=== PATIENT | female | born 1955 | race Caucasian/White ===

== ENCOUNTER → 2017-10-13 08:02 | Outpatient (CLI) | payer OTHER, SELFPAY ==
[2017-10-13 10:04] LABS: Absolute Lymphocyte Count 1.48 X10^3/ul (0.83-4.51); Absolute Neutrophil Count 3.8 X10^3/uL (2.0-7.7); Basophil# 0.03 X10^3/uL; Basophil% 0.5 % (0-1); Eosinophil# 0.24 X10^3/uL; Hemoglobin 13.1 g/dl (12.0-15.0); Lymphocyte # 1.48 X10^3/ul (4.0); Lymphocyte % 24.4 % (19-41); Mean Corp Hgb Conc 32.8 g/gl (32-36); Mean Corpuscular Hgb 33.3 pg (27.0-32.0); Mean Corpuscular Volume 101.8 fL (81-99); Monocyte# 0.53 X10^3/uL; Monocyte% 8.7 % (0-10); Neutrophil # 3.78 X10^3/uL (2.7-7.7); Neutrophil % 62.2 % (47-70); Platelet Count 281 K/mm3 (150-450); RBC Distribution Width CV 13.3 % (11.6-14.6); RBC Distribution Width SD 48.6 fl (35.1-43.9); Red Blood Count 3.93 M/mm3 (4.2-5.4); White Blood Count 6.1 K/mm3 (4.4-11.0)
[2017-10-13 10:08] LABS: POSITIVE COUNT NO; POSITIVE DIFFERENTIAL NO; POSITIVE MORPHOLOGY NO
[2017-10-13 10:19] LABS: ALB/GLOB Ratio 1.3 RATIO (0.9-2.4); AST(SGOT) 22 U/L (15-37); Alanine Aminotransfer ALT/SGPT 39 U/L (13-56); Albumin, Serum 3.8 g/dL (3.2-5.0); Alkaline Phosphatase 69 U/L (45-117); Anion Gap 6 (5-15); BUN 23 mg/dL (7-18); Calcium,Total 8.7 mg/dL (8.5-10.1); Chloride 105 mmol/L (98-107); Creatinine, Serum 0.68 mg/dL (0.55-1.02); EST Glomerular Filtration Rate 94 mL/min (>60); Est Glom Filt Rate - Afr Amer 114 mL/min (>60); Globulin 2.9 g/dL (2.2-4.2); Glucose 83 mg/dL (70-110); Potassium 3.7 mmol/L (3.5-5.1); Protein, Total 6.7 g/dL (6.4-8.2); Sodium Level 141 mmol/L (136-145)
== END ==
PROVIDERS: Family Provider Family Medicine; PCP Family Medicine; Visit Provider Internal Medicine Rheumatology
DX: M06.4 Inflammatory polyarthropathy (principal); Z79.899 Other long term (current) drug therapy; M79.7 Fibromyalgia; M18.0 Bilateral primary osteoarthritis of first carpometacarpal joints; M72.0 Palmar fascial fibromatosis [Dupuytren]; M47.892 Other spondylosis, cervical region; J30.89 Other allergic rhinitis; I82.5Y9 Chronic embolism and thrombosis of unspecified deep veins of unspecified proximal lower extremity; I47.1 Supraventricular tachycardia
CPT/HCPCS: 36415; 80053; 85025

== ENCOUNTER → 2017-12-29 07:37 | Outpatient (CLI) | payer OTHER, SELFPAY ==
[2017-12-29 09:54] LABS: Absolute Lymphocyte Count 1.49 X10^3/ul (0.83-4.51); Absolute Neutrophil Count 3.5 X10^3/uL (2.0-7.7); Basophil# 0.04 X10^3/uL; Basophil% 0.7 % (0-1); Eosinophils% 3.5 % (0-5); Hematocrit 40.1 % (37-47); Hemoglobin 12.7 g/dl (12.0-15.0); Lymphocyte # 1.49 X10^3/ul (4.0); Lymphocyte % 26.3 % (19-41); Mean Corp Hgb Conc 31.7 g/gl (32-36); Mean Platelet Vol. 10.2 fl (6.2-12.0); Monocyte# 0.47 X10^3/uL; Monocyte% 8.3 % (0-10); Neutrophil # 3.46 X10^3/uL (2.7-7.7); Neutrophil % 61.2 % (47-70); POSITIVE COUNT NO; POSITIVE DIFFERENTIAL NO; POSITIVE MORPHOLOGY NO; Platelet Count 249 K/mm3 (150-450); RBC Distribution Width CV 13.4 % (11.6-14.6); RBC Distribution Width SD 49.3 fl (35.1-43.9); Red Blood Count 3.97 M/mm3 (4.2-5.4); White Blood Count 5.7 K/mm3 (4.4-11.0)
[2017-12-29 10:07] LABS: ALB/GLOB Ratio 1.4 RATIO (0.9-2.4); AST(SGOT) 26 U/L (15-37); Alanine Aminotransfer ALT/SGPT 40 U/L (13-56); Albumin, Serum 3.6 g/dL (3.2-5.0); Alkaline Phosphatase 64 U/L (45-117); Anion Gap 11 (5-15); BUN 28 mg/dL (7-18); BUN/Creat Ratio 36.2 RATIO (10-20); Calcium,Total 8.3 mg/dL (8.5-10.1); Chloride 106 mmol/L (98-107); Creatinine, Serum 0.77 mg/dL (0.55-1.02); EST Glomerular Filtration Rate 81 mL/min (>60); Est Glom Filt Rate - Afr Amer 98 mL/min (>60); Globulin 2.6 g/dL (2.2-4.2); Glucose 112 mg/dL (74-106); Potassium 3.7 mmol/L (3.5-5.1); Protein, Total 6.2 g/dL (6.4-8.2); Sodium Level 143 mmol/L (136-145)
== END ==
PROVIDERS: Family Provider Family Medicine; PCP Family Medicine; Visit Provider Internal Medicine Rheumatology
DX: M06.4 Inflammatory polyarthropathy (principal); Z79.899 Other long term (current) drug therapy; M79.7 Fibromyalgia; M18.0 Bilateral primary osteoarthritis of first carpometacarpal joints; M72.0 Palmar fascial fibromatosis [Dupuytren]; M47.892 Other spondylosis, cervical region; J30.89 Other allergic rhinitis; I82.5Y9 Chronic embolism and thrombosis of unspecified deep veins of unspecified proximal lower extremity; I47.1 Supraventricular tachycardia
CPT/HCPCS: 36415; 80053; 85025

== ENCOUNTER → 2018-03-24 07:30 | Outpatient (CLI) | payer OTHER, SELFPAY ==
[2018-03-24 10:12] LABS: Absolute Lymphocyte Count 1.62 X10^3/ul (0.83-4.51); Absolute Neutrophil Count 3.7 X10^3/uL (2.0-7.7); Basophil# 0.04 X10^3/uL; Basophil% 0.7 % (0-1); Eosinophil# 0.23 X10^3/uL; Eosinophils% 3.8 % (0-5); Hematocrit 38.8 % (37-47); Hemoglobin 12.6 g/dl (12.0-15.0); Lymphocyte # 1.62 X10^3/ul (4.0); Lymphocyte % 26.4 % (19-41); Mean Corp Hgb Conc 32.5 g/gl (32-36); Mean Corpuscular Hgb 32.8 pg (27.0-32.0); Mean Platelet Vol. 10.1 fl (6.2-12.0); Monocyte# 0.51 X10^3/uL; Monocyte% 8.3 % (0-10); Neutrophil # 3.73 X10^3/uL (2.7-7.7); Neutrophil % 60.8 % (47-70); POSITIVE COUNT NO; POSITIVE DIFFERENTIAL NO; POSITIVE MORPHOLOGY NO; Platelet Count 260 K/mm3 (150-450); RBC Distribution Width CV 13.1 % (11.6-14.6); RBC Distribution Width SD 47.3 fl (35.1-43.9); Red Blood Count 3.84 M/mm3 (4.2-5.4); White Blood Count 6.1 K/mm3 (4.4-11.0)
[2018-03-24 10:28] LABS: Cholesterol 163 mg/dL (200); High Density Lipoprotein 84 mg/dL; Triglycerides 36 mg/dL; Very Low Density Lipoprotein 7 mg/dL (5-40)
[2018-03-24 10:35] LABS: ALB/GLOB Ratio 1.2 RATIO (0.9-2.4); AST(SGOT) 32 U/L (15-37); Alanine Aminotransfer ALT/SGPT 48 U/L (13-56); Albumin, Serum 3.6 g/dL (3.2-5.0); Alkaline Phosphatase 65 U/L (45-117); Anion Gap 7 (5-15); BUN 29 mg/dL (7-18); BUN/Creat Ratio 38.3 RATIO (10-20); Calcium,Total 8.5 mg/dL (8.5-10.1); Chloride 107 mmol/L (98-107); Creatinine, Serum 0.76 mg/dL (0.55-1.02); EST Glomerular Filtration Rate 83 mL/min (>60); Est Glom Filt Rate - Afr Amer 100 mL/min (>60); Globulin 2.9 g/dL (2.2-4.2); Glucose 79 mg/dL (74-106); Potassium 3.9 mmol/L (3.5-5.1); Protein, Total 6.5 g/dL (6.4-8.2); Sodium Level 143 mmol/L (136-145)
== END ==
PROVIDERS: Internal Medicine Rheumatology; Family Provider Family Medicine; PCP Family Medicine; Visit Provider Family Medicine
DX: M06.4 Inflammatory polyarthropathy (principal); Z79.899 Other long term (current) drug therapy; M79.7 Fibromyalgia; M18.0 Bilateral primary osteoarthritis of first carpometacarpal joints; M72.0 Palmar fascial fibromatosis [Dupuytren]; M47.892 Other spondylosis, cervical region; J30.89 Other allergic rhinitis; I47.1 Supraventricular tachycardia; I82.5Y9 Chronic embolism and thrombosis of unspecified deep veins of unspecified proximal lower extremity
CPT/HCPCS: 36415; 80053; 80061; 85025

== ENCOUNTER → 2018-06-02 09:19 | Outpatient (CLI) | payer OTHER, SELFPAY ==
--- NOTE | 2018-06-02 09:21 | BI_ITS ---
MAMMOGRAPHY - BILATERAL SCREENING REASON FOR EXAM: Female, 63 years old. Routine annual screening examination. PERTINENT HISTORY: Non-contributory. Remote left excisional breast biopsy. TECHNIQUE: Digital bilateral breast yesenia (3D mammographic acquisition) in the CC and MLO projections. 2-D mediolateral oblique (MLO) and craniocaudad (CC) views of both breasts were obtained. CAD: Full Field Digital Mammography with Computer Added Detection was performed. COMPARISON: Comparison is made with prior study dated May 26, 2017 and May 26, 2016. FINDINGS: Breast Composition: The breasts are heterogeneously dense, which may obscure small masses. There are no dominant masses or suspicious calcifications. No other significant abnormalities are identified. There has been no significant change since the prior study. BI/SCREENING MAMM (CAD), BILAT IMPRESSION: Stable bilateral screening mammogram. Yearly follow-up mammogram recommended. (A) ASSESSMENT CATEGORY: BIRADS Category 1: Negative. A letter regarding these results will be sent to the patient by the facility within 30 days. Approximately 10% of breast cancers are not detected by mammography. A normal mammogram should not delay biopsy of a clinically suspicious abnormality. [id number] Electronically Signed: Charles Dunham MD at 11:21 EDT Tel [phone], Service support ,
--- NOTE | 2018-06-02 09:23 | BD_ITS ---
STUDY: DUAL ENERGY X-RAY ABSORPTIOMETRY / DXA REASON FOR EXAM: Female, 63 years old. The patient is postmenopausal. Loss of height. TECHNIQUE: Bone Mineral Density (BMD) measurements of lumbar spine and bilateral hips were obtained. COMPARISON: None. FINDINGS: Lumbar Spine (L1-L4): g/cm2 (0.899) / T-score (-2.2) / Z-score (-0.9) Findings are suggestive of osteopenia with a moderate fracture risk. Left Femur Total: g/cm2 (0.859) / T-score (-1.2) / Z-score (-0.2) Left Femoral Neck: g/cm2 (0.835) / T-score (-1.5) / Z-score (-0.2) Right Femur Total: g/cm2 (0.847) / T-score (-1.3) / Z-score (-0.3) Right Femoral Neck: g/cm2 (0.819) / T-score (-1.6) / Z-score (-0.3) BD/Dexa Bone Density Study IMPRESSION: The patient is considered osteopenic as outlined below according to World Arron Organization (WHO) criteria with a moderate fracture risk. Reference Information: The T-score is the number of standard deviations above or below the standard which is normal for young adults at their peak bone mineral density. The World Health Organization (WHO) interprets the T-scores as follows: Above -1 Normal bone density Between -1 and -2.5 Osteopenia Equal to / or below -2.5 Osteoporosis As a practical clinical guideline, osteopenia may be graded as follows: Mild -1 through -1.5 Moderate -1.6 through -2.0 Severe -2.1 through -2.4 The Z-score is the number of standard deviations above or below age-matched controls. A Z-score of less than -1.5 would be considered abnormal. References: 1. NIH Osteoporosis and Related Bone Diseases http://www.osteo.org 2. International Society for Clinical Densitometry http://www.iscd.org 3. National Osteoporosis Foundation http://www.nof.org Electronically Signed: Charles Dunham MD at 9:52 EDT Tel [phone], Service support ,
== END ==
PROVIDERS: Family Provider Family Medicine; PCP Family Medicine; Visit Provider Family Medicine
DX: Z12.31 Encounter for screening mammogram for malignant neoplasm of breast (principal); Z78.0 Asymptomatic menopausal state
CPT/HCPCS: 77063; 77067; 77080

== ENCOUNTER → 2018-06-14 07:58 | Outpatient (CLI) | payer OTHER, SELFPAY ==
[2018-06-14 10:13] LABS: Absolute Lymphocyte Count 1.72 X10^3/ul (0.83-4.51); Absolute Neutrophil Count 3.2 X10^3/uL (2.0-7.7); Basophil# 0.05 X10^3/uL; Basophil% 0.9 % (0-1); Eosinophil# 0.14 X10^3/uL; Eosinophils% 2.5 % (0-5); Hematocrit 40.6 % (37-47); Hemoglobin 13.3 g/dl (12.0-15.0); Lymphocyte # 1.72 X10^3/ul (4.0); Lymphocyte % 30.7 % (19-41); Mean Corp Hgb Conc 32.8 g/gl (32-36); Mean Corpuscular Hgb 32.2 pg (27.0-32.0); Mean Corpuscular Volume 98.3 fL (81-99); Mean Platelet Vol. 9.6 fl (6.2-12.0); Monocyte# 0.53 X10^3/uL; Monocyte% 9.4 % (0-10); Neutrophil # 3.16 X10^3/uL (2.7-7.7); Neutrophil % 56.3 % (47-70); Platelet Count 307 K/mm3 (150-450); RBC Distribution Width CV 13.9 % (11.6-14.6); RBC Distribution Width SD 48.4 fl (35.1-43.9); Red Blood Count 4.13 M/mm3 (4.2-5.4); White Blood Count 5.6 K/mm3 (4.4-11.0)
[2018-06-14 10:17] LABS: POSITIVE COUNT NO; POSITIVE DIFFERENTIAL NO; POSITIVE MORPHOLOGY NO
[2018-06-14 10:38] LABS: ALB/GLOB Ratio 1.2 RATIO (0.9-2.4); AST(SGOT) 20 U/L (15-37); Alanine Aminotransfer ALT/SGPT 32 U/L (13-56); Albumin, Serum 3.7 g/dL (3.2-5.0); Alkaline Phosphatase 64 U/L (45-117); Anion Gap 9 (5-15); BUN 25 mg/dL (7-18); BUN/Creat Ratio 33.6 RATIO (10-20); Chloride 105 mmol/L (98-107); Creatinine, Serum 0.74 mg/dL (0.55-1.02); EST Glomerular Filtration Rate 84 mL/min (>60); Est Glom Filt Rate - Afr Amer 102 mL/min (>60); Globulin 3.1 g/dL (2.2-4.2); Glucose 72 mg/dL (74-106); Protein, Total 6.8 g/dL (6.4-8.2); Sodium Level 142 mmol/L (136-145)
== END ==
PROVIDERS: Family Provider Family Medicine; PCP Family Medicine; Referring Provider Internal Medicine Rheumatology; Visit Provider Internal Medicine Rheumatology
DX: M06.4 Inflammatory polyarthropathy (principal); Z79.899 Other long term (current) drug therapy; M79.7 Fibromyalgia; M18.0 Bilateral primary osteoarthritis of first carpometacarpal joints; M72.0 Palmar fascial fibromatosis [Dupuytren]; M47.892 Other spondylosis, cervical region; J30.89 Other allergic rhinitis; I82.5Y9 Chronic embolism and thrombosis of unspecified deep veins of unspecified proximal lower extremity; I47.1 Supraventricular tachycardia
CPT/HCPCS: 36415; 80053; 85025

== ENCOUNTER → 2018-09-20 07:56 | Outpatient (CLI) | payer BC, SELFPAY ==
[2018-09-20 10:28] LABS: Absolute Lymphocyte Count 1.65 X10^3/ul (0.83-4.51); Absolute Neutrophil Count 3.6 X10^3/uL (2.0-7.7); Basophil# 0.03 X10^3/uL; Basophil% 0.5 % (0-1); Eosinophil# 0.17 X10^3/uL; Eosinophils% 2.9 % (0-5); Hematocrit 39.8 % (37-47); Hemoglobin 12.6 g/dl (12.0-15.0); Lymphocyte # 1.65 X10^3/ul (4.0); Lymphocyte % 27.7 % (19-41); Mean Corp Hgb Conc 31.7 g/gl (32-36); Mean Corpuscular Hgb 32.2 pg (27.0-32.0); Mean Corpuscular Volume 101.8 fL (81-99); Mean Platelet Vol. 10.2 fl (6.2-12.0); Monocyte# 0.53 X10^3/uL; Monocyte% 8.9 % (0-10); Neutrophil # 3.57 X10^3/uL (2.7-7.7); Neutrophil % 59.8 % (47-70); Platelet Count 256 K/mm3 (150-450); RBC Distribution Width CV 13.9 % (11.6-14.6); RBC Distribution Width SD 51.2 fl (35.1-43.9); Red Blood Count 3.91 M/mm3 (4.2-5.4)
[2018-09-20 10:33] LABS: POSITIVE COUNT NO; POSITIVE DIFFERENTIAL NO; POSITIVE MORPHOLOGY NO
[2018-09-20 10:38] LABS: ALB/GLOB Ratio 1.3 RATIO (0.9-2.4); AST(SGOT) 23 U/L (15-37); Alanine Aminotransfer ALT/SGPT 36 U/L (13-56); Albumin, Serum 3.7 g/dL (3.2-5.0); Alkaline Phosphatase 61 U/L (45-117); Anion Gap 7 (5-15); BUN 23 mg/dL (7-18); BUN/Creat Ratio 30.2 RATIO (10-20); Calcium,Total 8.8 mg/dL (8.5-10.1); Chloride 109 mmol/L (98-107); Creatinine, Serum 0.76 mg/dL (0.55-1.02); EST Glomerular Filtration Rate 82 mL/min (>60); Est Glom Filt Rate - Afr Amer 99 mL/min (>60); Globulin 2.8 g/dL (2.2-4.2); Glucose 76 mg/dL (74-106); Potassium 3.9 mmol/L (3.5-5.1); Protein, Total 6.5 g/dL (6.4-8.2); Sodium Level 144 mmol/L (136-145)
== END ==
PROVIDERS: Family Provider Family Medicine; PCP Family Medicine; Referring Provider Internal Medicine Rheumatology; Visit Provider Internal Medicine Rheumatology
DX: M06.4 Inflammatory polyarthropathy (principal); Z79.899 Other long term (current) drug therapy; M79.7 Fibromyalgia; M18.0 Bilateral primary osteoarthritis of first carpometacarpal joints; M72.0 Palmar fascial fibromatosis [Dupuytren]; M47.892 Other spondylosis, cervical region
CPT/HCPCS: 36415; 80053; 85025

== ENCOUNTER → 2018-11-02 09:44 | Outpatient (CLI) | payer BC, SELFPAY | PROVIDERS: Family Provider Family Medicine; PCP Family Medicine; Visit Provider Family Medicine | DX: F32.9 Major depressive disorder, single episode, unspecified (principal) | CPT/HCPCS: 36415; 84443 ==

== ENCOUNTER → 2018-12-21 07:45 | Outpatient (CLI) | payer BC, SELFPAY ==
[2018-12-21 10:31] LABS: Absolute Lymphocyte Count 1.43 X10^3/ul (0.83-4.51); Absolute Neutrophil Count 3.3 X10^3/uL (2.0-7.7); Basophil# 0.04 X10^3/uL; Basophil% 0.7 % (0-1); Eosinophil# 0.21 X10^3/uL; Eosinophils% 3.9 % (0-5); Hematocrit 39.3 % (37-47); Hemoglobin 12.7 g/dl (12.0-15.0); Lymphocyte # 1.43 X10^3/ul (4.0); Lymphocyte % 26.4 % (19-41); Mean Corp Hgb Conc 32.3 g/gl (32-36); Mean Corpuscular Hgb 32.6 pg (27.0-32.0); Mean Platelet Vol. 9.8 fl (6.2-12.0); Monocyte# 0.45 X10^3/uL; Monocyte% 8.3 % (0-10); Neutrophil # 3.27 X10^3/uL (2.7-7.7); Neutrophil % 60.5 % (47-70); Platelet Count 249 K/mm3 (150-450); RBC Distribution Width CV 13.4 % (11.6-14.6); RBC Distribution Width SD 48.3 fl (35.1-43.9); Red Blood Count 3.89 M/mm3 (4.2-5.4); White Blood Count 5.4 K/mm3 (4.4-11.0)
[2018-12-21 10:32] LABS: POSITIVE COUNT NO; POSITIVE DIFFERENTIAL NO; POSITIVE MORPHOLOGY NO
[2018-12-21 10:45] LABS: ALB/GLOB Ratio 1.4 RATIO (0.9-2.4); AST(SGOT) 28 U/L (15-37); Alanine Aminotransfer ALT/SGPT 38 U/L (13-56); Albumin, Serum 3.7 g/dL (3.2-5.0); Alkaline Phosphatase 55 U/L (45-117); Anion Gap 9 (5-15); BUN 21 mg/dL (7-18); BUN/Creat Ratio 23.5 RATIO (10-20); Calcium,Total 8.7 mg/dL (8.5-10.1); Chloride 105 mmol/L (98-107); Creatinine, Serum 0.89 mg/dL (0.55-1.02); EST Glomerular Filtration Rate 68 mL/min (>60); Est Glom Filt Rate - Afr Amer 82 mL/min (>60); Globulin 2.6 g/dL (2.2-4.2); Glucose 122 mg/dL (74-106); Potassium 3.9 mmol/L (3.5-5.1); Protein, Total 6.3 g/dL (6.4-8.2); Sodium Level 143 mmol/L (136-145)
== END ==
PROVIDERS: Family Provider Family Medicine; PCP Family Medicine; Referring Provider Internal Medicine Rheumatology; Visit Provider Internal Medicine Rheumatology
DX: M06.4 Inflammatory polyarthropathy (principal); Z79.899 Other long term (current) drug therapy; M79.7 Fibromyalgia; M18.0 Bilateral primary osteoarthritis of first carpometacarpal joints; M72.0 Palmar fascial fibromatosis [Dupuytren]; M47.892 Other spondylosis, cervical region; J30.89 Other allergic rhinitis; I82.5Y9 Chronic embolism and thrombosis of unspecified deep veins of unspecified proximal lower extremity; I47.1 Supraventricular tachycardia
CPT/HCPCS: 36415; 80053; 85025

== ENCOUNTER → 2019-01-23 12:54 | Outpatient (CLI) | payer BC, SELFPAY ==
--- NOTE | 2019-01-23 12:57 | RAD_ITS ---
STUDY: X-RAY - NASAL BONES REASON FOR EXAM: Female, 63 years old. Pain and swelling 2 days after car costello back injury to nasal bones. TECHNIQUE: 3 view(s) of the nasal bones. COMPARISON: None. FINDINGS: Normal nasal bones. Normal anterior nasal spine. There is no demonstrated soft tissue swelling. The remaining visualized osseous structures are normal. There is no demonstrated acute fracture of the otherwise visualized osseous structures. Normal visualized paranasal sinuses. RAD/Nasal Bones min 3 Views IMPRESSION: No acute fracture of the nasal bones. Electronically Signed: Dylan Titus MD at 20:01 EDT , Service support ,
== END ==
PROVIDERS: Family Provider Family Medicine; PCP Family Medicine; Referring Provider Family Medicine; Visit Provider Family Medicine
DX: S09.92XA Unspecified injury of nose, initial encounter (principal)
CPT/HCPCS: 70160

== ENCOUNTER → 2019-03-28 | Outpatient (CLI) | payer BC, SELFPAY ==
[2019-03-28 10:15] LABS: Absolute Lymphocyte Count 1.41 X10^3/uL (0.83-4.51); Absolute Neutrophil Count 3.8 X10^3/uL (2.0-7.7); Basophil# 0.05 X10^3/uL; Basophil% 0.9 % (0-1); Eosinophil# 0.15 X10^3/uL; Eosinophils% 2.6 % (0-5); Hematocrit 37.8 % (37-47); Hemoglobin 12.1 g/dL (12.0-15.0); Lymphocyte # 1.41 X10^3/ul (4.0); Lymphocyte % 24.3 % (19-41); Mean Corpuscular Hgb 31.8 pg (27.0-32.0); Mean Corpuscular Volume 99.2 fL (81-99); Mean Platelet Vol. 9.8 fl (6.2-12.0); Monocyte# 0.41 X10^3/uL; Monocyte% 7.1 % (0-10); Neutrophil # 3.78 X10^3/uL (2.7-7.7); Neutrophil % 64.9 % (47-70); Platelet Count 239 K/mm3 (150-450); RBC Distribution Width CV 13.9 % (11.6-14.6); RBC Distribution Width SD 50.5 fl (35.1-43.9); Red Blood Count 3.81 M/mm3 (4.2-5.4); White Blood Count 5.8 K/mm3 (4.4-11.0)
[2019-03-28 10:27] LABS: ALB/GLOB Ratio 1.3 RATIO (0.9-2.4); AST(SGOT) 28 U/L (15-37); Alanine Aminotransfer ALT/SGPT 33 U/L (13-56); Albumin, Serum 3.7 g/dL (3.2-5.0); Alkaline Phosphatase 57 U/L (45-117); Anion Gap 2 (5-15); BUN 20 mg/dL (7-18); BUN/Creat Ratio 23.3 RATIO (10-20); Calcium,Total 8.6 mg/dL (8.5-10.1); Chloride 107 mmol/L (98-107); Creatinine, Serum 0.86 mg/dL (0.55-1.02); EST Glomerular Filtration Rate 71 mL/min (>60); Est Glom Filt Rate - Afr Amer 86 mL/min (>60); Globulin 2.8 g/dL (2.2-4.2); Glucose 83 mg/dL (74-106); Potassium 3.8 mmol/L (3.5-5.1); Protein, Total 6.5 g/dL (6.4-8.2); Sodium Level 140 mmol/L (136-145)
== END | disposition home or self-care (01) ==
LOC: MTLAB 08:01
PROVIDERS: Family Provider Family Medicine; PCP Family Medicine; Referring Provider Internal Medicine Rheumatology; Visit Provider Internal Medicine Rheumatology
DX: M06.4 Inflammatory polyarthropathy (principal); M79.7 Fibromyalgia; M18.0 Bilateral primary osteoarthritis of first carpometacarpal joints; M15.9 Polyosteoarthritis, unspecified; M65.342 Trigger finger, left ring finger; M72.0 Palmar fascial fibromatosis [Dupuytren]; M47.892 Other spondylosis, cervical region; Z79.899 Other long term (current) drug therapy
CPT/HCPCS: 36415; 80053; 85025

== ENCOUNTER → 2019-06-07 07:10 | Outpatient (CLI) | payer BC, SELFPAY ==
--- NOTE | 2019-06-07 07:13 | BI_ITS ---
MAMMOGRAPHY - BILATERAL SCREENING REASON FOR EXAM: Female, 64 years old. Routine annual screening examination. PERTINENT HISTORY: Non-contributory. Remote left excisional breast biopsy. TECHNIQUE: Digital bilateral breast heather (3D mammographic acquisition) in the CC and MLO projections. 2-D mediolateral oblique (MLO) and craniocaudad (CC) views of both breasts were obtained. CAD: Full Field Digital Mammography with Computer Added Detection was performed. COMPARISON: Comparison is made with prior studies of August 02, 2018 and May 26, 2017. FINDINGS: Breast Composition: The breasts are heterogeneously dense, which may obscure small masses. There are no dominant masses or suspicious calcifications. No other significant abnormalities are identified. There has been no significant change since the prior study. BI/SCREEN MAMM (CAD) W/HEATHER BILAT IMPRESSION: Stable bilateral screening mammogram. Yearly follow-up mammogram recommended. (A) ASSESSMENT CATEGORY: BIRADS Category 1: Negative. A letter regarding these results will be sent to the patient by the facility within 30 days. Approximately 10% of breast cancers are not detected by mammography. A normal mammogram should not delay biopsy of a clinically suspicious abnormality. [id number] Electronically Signed: Charles Dunham, at 8:25 EDT , Service support ,
== END ==
PROVIDERS: Family Provider Family Medicine; PCP Family Medicine; Referring Provider Family Medicine; Visit Provider Family Medicine
DX: Z12.31 Encounter for screening mammogram for malignant neoplasm of breast (principal)
CPT/HCPCS: 77063; 77067

== ENCOUNTER → 2019-06-19 07:48 | Outpatient (CLI) | payer BC, SELFPAY ==
[2019-06-19 10:03] LABS: Absolute Lymphocyte Count 1.39 X10^3/uL (0.83-4.51); Absolute Neutrophil Count 4.6 X10^3/uL (2.0-7.7); Basophil# 0.06 X10^3/uL; Basophil% 0.9 % (0-1); Eosinophil# 0.23 X10^3/uL; Eosinophils% 3.3 % (0-5); Hematocrit 37.9 % (37-47); Hemoglobin 12.2 g/dL (12.0-15.0); Lymphocyte # 1.39 X10^3/ul (4.0); Lymphocyte % 20.2 % (19-41); Mean Corp Hgb Conc 32.2 g/dL (32-36); Mean Corpuscular Hgb 31.9 pg (27.0-32.0); Mean Corpuscular Volume 99.2 fL (81-99); Mean Platelet Vol. 9.4 fl (6.2-12.0); Monocyte# 0.62 X10^3/uL; NRBC Flagged by Analyzer 0 % (0-5); Neutrophil # 4.56 X10^3/uL (2.7-7.7); Neutrophil % 66.5 % (47-70); Platelet Count 289 K/mm3 (150-450); RBC Distribution Width CV 14.3 % (11.6-14.6); RBC Distribution Width SD 51.8 fl (35.1-43.9); Red Blood Count 3.82 M/mm3 (4.2-5.4); White Blood Count 6.9 K/mm3 (4.4-11.0)
[2019-06-19 10:23] LABS: ALB/GLOB Ratio 1.3 RATIO (0.9-2.4); AST(SGOT) 32 U/L (15-37); Alanine Aminotransfer ALT/SGPT 34 U/L (13-56); Albumin, Serum 3.6 g/dL (3.2-5.0); Alkaline Phosphatase 59 U/L (45-117); Anion Gap 7 (5-15); BUN 17 mg/dL (7-18); Calcium,Total 8.6 mg/dL (8.5-10.1); Chloride 108 mmol/L (98-107); Creatinine, Serum 0.81 mg/dL (0.55-1.02); EST Glomerular Filtration Rate 76 mL/min (>60); Est Glom Filt Rate - Afr Amer 92 mL/min (>60); Globulin 2.7 g/dL (2.2-4.2); Glucose 85 mg/dL (74-106); Potassium 3.7 mmol/L (3.5-5.1); Protein, Total 6.3 g/dL (6.4-8.2); Sodium Level 144 mmol/L (136-145)
== END ==
PROVIDERS: Family Provider Family Medicine; PCP Family Medicine; Referring Provider Internal Medicine Rheumatology; Visit Provider Internal Medicine Rheumatology
DX: M06.4 Inflammatory polyarthropathy (principal); Z79.899 Other long term (current) drug therapy; M79.7 Fibromyalgia; M18.0 Bilateral primary osteoarthritis of first carpometacarpal joints; M65.342 Trigger finger, left ring finger; M72.0 Palmar fascial fibromatosis [Dupuytren]; M47.892 Other spondylosis, cervical region
CPT/HCPCS: 36415; 80053; 85025

== ENCOUNTER → 2019-09-21 07:28 | Outpatient (CLI) | payer BC, SELFPAY ==
[2019-09-21 10:02] LABS: Absolute Lymphocyte Count 1.67 X10^3/uL (0.83-4.51); Absolute Neutrophil Count 3.8 X10^3/uL (2.0-7.7); Basophil# 0.08 X10^3/uL; Basophil% 1.2 % (0-1); Eosinophil# 0.22 X10^3/uL; Eosinophils% 3.4 % (0-5); Hematocrit 37.6 % (37-47); Hemoglobin 11.9 g/dL (12.0-15.0); Lymphocyte # 1.67 X10^3/ul (4.0); Mean Corp Hgb Conc 31.6 g/dL (32-36); Mean Corpuscular Hgb 29.8 pg (27.0-32.0); Mean Corpuscular Volume 94.2 fL (81-99); Mean Platelet Vol. 9.4 fl (6.2-12.0); Monocyte# 0.61 X10^3/uL; Monocyte% 9.5 % (0-10); NRBC Flagged by Analyzer 0 % (0-5); Neutrophil # 3.83 X10^3/uL (2.7-7.7); Neutrophil % 59.6 % (47-70); Platelet Count 313 K/mm3 (150-450); RBC Distribution Width CV 15.1 % (11.6-14.6); RBC Distribution Width SD 51.2 fl (35.1-43.9); Red Blood Count 3.99 M/mm3 (4.2-5.4); White Blood Count 6.4 K/mm3 (4.4-11.0)
[2019-09-21 10:14] LABS: ALB/GLOB Ratio 1.2 RATIO (0.9-2.4); AST(SGOT) 30 U/L (15-37); Alanine Aminotransfer ALT/SGPT 43 U/L (13-56); Albumin, Serum 3.7 g/dL (3.2-5.0); Alkaline Phosphatase 51 U/L (45-117); Anion Gap 5 (5-15); BUN 24 mg/dL (7-18); BUN/Creat Ratio 26.8 RATIO (10-20); Chloride 104 mmol/L (98-107); EST Glomerular Filtration Rate 68 mL/min (>60); Est Glom Filt Rate - Afr Amer 82 mL/min (>60); Globulin 3.1 g/dL (2.2-4.2); Glucose 115 mg/dL (74-106); Potassium 3.3 mmol/L (3.5-5.1); Protein, Total 6.8 g/dL (6.4-8.2); Sodium Level 142 mmol/L (136-145)
== END ==
PROVIDERS: Family Provider Family Medicine; PCP Family Medicine; Referring Provider Internal Medicine Rheumatology; Visit Provider Internal Medicine Rheumatology
DX: M06.4 Inflammatory polyarthropathy (principal); Z79.899 Other long term (current) drug therapy; M79.7 Fibromyalgia; M18.0 Bilateral primary osteoarthritis of first carpometacarpal joints; M15.9 Polyosteoarthritis, unspecified; M65.342 Trigger finger, left ring finger; M72.0 Palmar fascial fibromatosis [Dupuytren]; M47.892 Other spondylosis, cervical region; J30.89 Other allergic rhinitis; I82.5Y9 Chronic embolism and thrombosis of unspecified deep veins of unspecified proximal lower extremity; I47.1 Supraventricular tachycardia; L40.9 Psoriasis, unspecified
CPT/HCPCS: 36415; 80053; 85025

== ENCOUNTER → 2019-12-13 08:29 | Outpatient (CLI) | payer BC, SELFPAY ==
[2019-12-13 10:07] LABS: Absolute Lymphocyte Count 1.44 X10^3/uL (0.83-4.51); Absolute Neutrophil Count 4.6 X10^3/uL (2.0-7.7); Basophil# 0.07 X10^3/uL; Eosinophil# 0.16 X10^3/uL; Eosinophils% 2.3 % (0-5); Hematocrit 37.2 % (37-47); Hemoglobin 11.9 g/dL (12.0-15.0); Lymphocyte # 1.44 X10^3/ul (4.0); Lymphocyte % 20.7 % (19-41); Mean Corpuscular Hgb 30.1 pg (27.0-32.0); Mean Corpuscular Volume 93.9 fL (81-99); Mean Platelet Vol. 9.2 fl (6.2-12.0); Monocyte# 0.72 X10^3/uL; Monocyte% 10.3 % (0-10); NRBC Flagged by Analyzer 0 % (0-5); Neutrophil # 4.56 X10^3/uL (2.7-7.7); Neutrophil % 65.6 % (47-70); Platelet Count 288 K/mm3 (150-450); RBC Distribution Width CV 16.7 % (11.6-14.6); RBC Distribution Width SD 55.6 fl (35.1-43.9); Red Blood Count 3.96 M/mm3 (4.2-5.4)
[2019-12-13 10:21] LABS: ALB/GLOB Ratio 1.3 RATIO (0.9-2.4); AST(SGOT) 42 U/L (15-37); Alanine Aminotransfer ALT/SGPT 53 U/L (13-56); Albumin, Serum 3.9 g/dL (3.2-5.0); Alkaline Phosphatase 59 U/L (45-117); Anion Gap 5 (5-15); BUN 21 mg/dL (7-18); BUN/Creat Ratio 23.4 RATIO (10-20); Calcium,Total 8.7 mg/dL (8.5-10.1); Chloride 103 mmol/L (98-107); EST Glomerular Filtration Rate 68 mL/min (>60); Est Glom Filt Rate - Afr Amer 82 mL/min (>60); Globulin 2.9 g/dL (2.2-4.2); Glucose 97 mg/dL (74-106); Potassium 3.1 mmol/L (3.5-5.1); Protein, Total 6.8 g/dL (6.4-8.2); Sodium Level 139 mmol/L (136-145)
== END ==
PROVIDERS: PCP Family Medicine; Referring Provider Internal Medicine Rheumatology; Visit Provider Internal Medicine Rheumatology
DX: M06.4 Inflammatory polyarthropathy (principal); Z79.899 Other long term (current) drug therapy; M79.7 Fibromyalgia; M18.0 Bilateral primary osteoarthritis of first carpometacarpal joints; M65.342 Trigger finger, left ring finger; M72.0 Palmar fascial fibromatosis [Dupuytren]; M47.892 Other spondylosis, cervical region; J30.89 Other allergic rhinitis; I82.5Y9 Chronic embolism and thrombosis of unspecified deep veins of unspecified proximal lower extremity; I47.1 Supraventricular tachycardia
CPT/HCPCS: 36415; 80053; 85025

== ENCOUNTER → 2020-01-31 11:51 | Outpatient (CLI) | payer BC, SELFPAY ==
[2020-01-31 15:32] LABS: Anion Gap 6 (5-15); BUN 15 mg/dL (7-18); BUN/Creat Ratio 18.6 RATIO (10-20); Calcium,Total 9.1 mg/dL (8.5-10.1); Chloride 105 mmol/L (98-107); Creatinine, Serum 0.81 mg/dL (0.55-1.02); EST Glomerular Filtration Rate 76 mL/min (>60); Est Glom Filt Rate - Afr Amer 92 mL/min (>60); Glucose 84 mg/dL (74-106); Potassium 3.6 mmol/L (3.5-5.1); Sodium Level 141 mmol/L (136-145)
[2020-01-31 15:55] LABS: BNP,B-Type NATRIURETIC PEPTIDE 57.8 pg/mL (0-100)
== END ==
PROVIDERS: PCP Family Medicine; Referring Provider Family Medicine; Visit Provider Family Medicine
DX: R60.9 Edema, unspecified (principal)
CPT/HCPCS: 36415; 80048; 83880

== ENCOUNTER → 2020-02-01 13:43 | Outpatient (CLI) | payer BC, SELFPAY ==
--- NOTE | 2020-02-01 13:48 | VDLE_ITS ---
Reason For Study: edema RIGHT LEFT CFV, FV, POP V, T/P Trunk, PTV, Peroneal V, CFV, FV, POP V, T/P Trunk, PTV, and Peroneal and GSV are compressible. V are compressible. Procedure GSV is absent. Exam performed in department. The exam was abbreviated due to the COVID 19 protocol. The exam was diagnostic. A preliminary report was called and/or faxed to Dr. Avalos. Interpretation Summary Deep veins of the lower extremities are bilaterally patent and compressible segmentally. There is no evidence of deep vein thrombosis on either side. The right great saphenous vein appears patent and compressible segmentally. The left great saphenous vein is absent. An abbreviated Covid-19 protocol was performed. Ordering Physician: Moira Avalos Performed By: Jalen Mc RVT
== END ==
PROVIDERS: PCP Family Medicine; Referring Provider Family Medicine; Visit Provider Family Medicine
DX: R60.0 Localized edema (principal)
CPT/HCPCS: 93970

== ENCOUNTER → 2020-02-20 12:49 | Outpatient (CLI) | payer BC, SELFPAY ==
--- NOTE | 2020-02-20 12:55 | ECHOD_ITS ---
Version 2 Reason For Study: SVT Procedure This was a 2D Doppler, Color Flow transthoracic echocardiogram. Exam performed portable in patient room. Left Ventricle Normal LV size. The estimated ejection fraction is 65 %. No regional wall motion abnormalities noted. Right Ventricle Normal RV size. Normal systolic function. Atria Normal left atrium. Normal right atrium. Mitral Valve Bileaflet diffuse mitral valve thickening. Mild (1+) eccentric mitral valve insufficiency. Tricuspid Valve Normal tricuspid valve. Mild tricuspid valve insufficiency. Pulmonary artery systolic pressure is 30 mmHg. Aortic Valve Normal aortic valve. Trisinus/trileaflet aortic valve. Pulmonic Valve Normal pulmonic valve. Great Vessels Normal aortic root. The pulmonary artery is normal size. Normal inferior vena cava. Pericardium/Pleural No pericardial effusion. MMode/2D Measurements & Calculations LVIDd: 4.9 cm IVSd: 0.86 cm Ao root diam: 3.5 cm LVIDs: 3.1 cm LVPWd: 0.78 cm LA dimension: 4.0 cm RVDd: 3.4 cm FS: 36.7 % LAV(MOD-bp): 63.2 ml LA A4 area: 20.5 cm2 RA A4 area: 18.1 cm2 LAV(MOD-bp) Indexed: 35.9 ml/m2 LAV(MOD-sp2): 60.7 ml LAV(MOD-sp4): 61.4 ml Time Measurements MV dec time: 0.17 sec Doppler Measurements & Calculations MV E max luis alfredo: 88.3 cm/sec Lat Peak E' Luis Alfredo: 12.7 cm/sec Med Peak E' Luis Alfredo: 9.0 cm/sec MV A max luis alfredo: 104.6 cm/sec E/E' lat: 6.9 E/E' med: 9.8 MV E/A: 0.84 MV V2 max: 114.0 cm/sec MV P1/2t max luis alfredo: 101.2 cm/sec Ao V2 max: 170.1 cm/sec MV max P.2 mmHg MV P1/2t: 93.2 msec Ao max P.6 mmHg MV V2 mean: 66.3 cm/sec MV dec slope: 317.8 cm/sec2 MV mean P.0 mmHg MVA(P1/2t): 2.4 cm2 MV V2 VTI: 32.2 cm LV V1 max: 143.8 cm/sec MR max luis alfredo: 571.7 cm/sec PA V2 max: 108.8 cm/sec LV V1 max P.3 mmHg MR max P.7 mmHg MR mean luis alfredo: 464.5 cm/sec MR mean P.5 mmHg MR VTI: 198.5 cm TR max luis alfredo: 258.2 cm/sec TR max P.7 mmHg Interpretation Summary Normal LV size. The estimated ejection fraction is 65 %. Bileaflet diffuse mitral valve thickening. Mild (1+) eccentric mitral valve insufficiency. Mild tricuspid valve insufficiency. Pulmonary artery systolic pressure is 30 mmHg. Ordering Physician: Moira Avalos Referring Physician: Moira Avalos Performed By: Morales Vital RCS
== END ==
PROVIDERS: PCP Family Medicine; Referring Provider Family Medicine; Visit Provider Family Medicine
DX: I47.1 Supraventricular tachycardia (principal)
CPT/HCPCS: 93306

== ENCOUNTER → 2020-03-06 07:22 | Outpatient (CLI) | payer BC, SELFPAY ==
[2020-03-06 10:29] LABS: Absolute Lymphocyte Count 1.36 X10^3/uL (0.83-4.51); Absolute Neutrophil Count 3.8 X10^3/uL (2.0-7.7); Basophil# 0.06 X10^3/uL; Eosinophil# 0.11 X10^3/uL; Eosinophils% 1.9 % (0-5); Hematocrit 36.6 % (37-47); Lymphocyte # 1.36 X10^3/ul (4.0); Mean Corp Hgb Conc 30.1 g/dL (32-36); Mean Corpuscular Hgb 28.1 pg (27.0-32.0); Mean Corpuscular Volume 93.6 fL (81-99); Mean Platelet Vol. 9.2 fl (6.2-12.0); Monocyte# 0.62 X10^3/uL; Monocyte% 10.5 % (0-10); NRBC Flagged by Analyzer 0 % (0-5); Neutrophil # 3.75 X10^3/uL (2.7-7.7); Neutrophil % 63.4 % (47-70); Platelet Count 308 K/mm3 (150-450); RBC Distribution Width CV 17.8 % (11.6-14.6); RBC Distribution Width SD 60.2 fl (35.1-43.9); Red Blood Count 3.91 M/mm3 (4.2-5.4); White Blood Count 5.9 K/mm3 (4.4-11.0)
[2020-03-06 10:50] LABS: ALB/GLOB Ratio 1.3 RATIO (0.9-2.4); AST(SGOT) 31 U/L (15-37); Alanine Aminotransfer ALT/SGPT 28 U/L (13-56); Albumin, Serum 3.9 g/dL (3.2-5.0); Alkaline Phosphatase 70 U/L (45-117); Anion Gap 3 (5-15); BUN 14 mg/dL (7-18); BUN/Creat Ratio 17.2 RATIO (10-20); Calcium,Total 8.9 mg/dL (8.5-10.1); Chloride 108 mmol/L (98-107); Creatinine, Serum 0.82 mg/dL (0.55-1.02); EST Glomerular Filtration Rate 75 mL/min (>60); Est Glom Filt Rate - Afr Amer 91 mL/min (>60); Globulin 2.9 g/dL (2.2-4.2); Glucose 90 mg/dL (74-106); Potassium 3.5 mmol/L (3.5-5.1); Protein, Total 6.8 g/dL (6.4-8.2); Sodium Level 143 mmol/L (136-145)
== END ==
PROVIDERS: PCP Family Medicine; Referring Provider Internal Medicine Rheumatology; Visit Provider Internal Medicine Rheumatology
DX: M06.4 Inflammatory polyarthropathy (principal); Z79.899 Other long term (current) drug therapy; M79.7 Fibromyalgia; M18.0 Bilateral primary osteoarthritis of first carpometacarpal joints; M65.342 Trigger finger, left ring finger
CPT/HCPCS: 36415; 80053; 85025

== ENCOUNTER → 2020-03-27 09:15 | Outpatient (CLI) | payer BC, SELFPAY | PROVIDERS: PCP Family Medicine; Referring Provider Internal Medicine Pulmonary Disease; Visit Provider Internal Medicine Pulmonary Disease | DX: Z03.818 Encounter for observation for suspected exposure to other biological agents ruled out (principal) | CPT/HCPCS: 87635; G2023; U0003 ==

== ENCOUNTER → 2020-05-21 11:30 | Outpatient (CLI) | payer BC, SELFPAY ==
[2020-05-21 16:09] LABS: Absolute Lymphocyte Count 1.97 X10^3/uL (0.83-4.51); Absolute Neutrophil Count 4.3 X10^3/uL (2.0-7.7); Basophil# 0.06 X10^3/uL; Basophil% 0.8 % (0-1); Eosinophil# 0.14 X10^3/uL; Hematocrit 35.6 % (37-47); Hemoglobin 10.9 g/dL (12.0-15.0); Lymphocyte # 1.97 X10^3/ul (4.0); Lymphocyte % 27.7 % (19-41); Mean Corp Hgb Conc 30.6 g/dL (32-36); Mean Corpuscular Hgb 27.3 pg (27.0-32.0); Mean Corpuscular Volume 89.2 fL (81-99); Mean Platelet Vol. 9.8 fl (6.2-12.0); Monocyte# 0.65 X10^3/uL; Monocyte% 9.1 % (0-10); NRBC Flagged by Analyzer 0 % (0-5); Neutrophil # 4.29 X10^3/uL (2.7-7.7); Neutrophil % 60.3 % (47-70); Platelet Count 349 K/mm3 (150-450); RBC Distribution Width SD 58.2 fl (35.1-43.9); Red Blood Count 3.99 M/mm3 (4.2-5.4); White Blood Count 7.1 K/mm3 (4.4-11.0)
[2020-05-21 16:13] LABS: ALB/GLOB Ratio 1.2 RATIO (0.9-2.4); AST(SGOT) 34 U/L (15-37); Alanine Aminotransfer ALT/SGPT 29 U/L (13-56); Albumin, Serum 3.8 g/dL (3.2-5.0); Alkaline Phosphatase 69 U/L (45-117); Anion Gap 5 (5-15); BUN 14 mg/dL (7-18); BUN/Creat Ratio 18.5 RATIO (10-20); Calcium,Total 8.7 mg/dL (8.5-10.1); Chloride 105 mmol/L (98-107); Creatinine, Serum 0.76 mg/dL (0.55-1.02); EST Glomerular Filtration Rate 82 mL/min (>60); Est Glom Filt Rate - Afr Amer 99 mL/min (>60); Globulin 3.1 g/dL (2.2-4.2); Glucose 81 mg/dL (74-106); Potassium 3.6 mmol/L (3.5-5.1); Protein, Total 6.9 g/dL (6.4-8.2); Sodium Level 141 mmol/L (136-145)
== END ==
PROVIDERS: PCP Family Medicine; Referring Provider Internal Medicine Rheumatology; Visit Provider Internal Medicine Rheumatology
DX: M06.4 Inflammatory polyarthropathy (principal); Z79.899 Other long term (current) drug therapy; M79.7 Fibromyalgia; M18.0 Bilateral primary osteoarthritis of first carpometacarpal joints; M65.342 Trigger finger, left ring finger; M72.0 Palmar fascial fibromatosis [Dupuytren]
CPT/HCPCS: 36415; 80053; 85025

== ENCOUNTER → 2020-06-27 06:55 | Outpatient (CLI) | payer BC, SELFPAY ==
--- NOTE | 2020-06-27 06:59 | BI_ITS ---
MAMMOGRAPHY - BILATERAL SCREENING REASON FOR EXAM: Female, 65 years old. Routine annual screening examination. PERTINENT HISTORY: Non-contributory. Remote left excisional breast biopsy. TECHNIQUE: Digital bilateral breast heather (3D mammographic acquisition) in the CC and MLO projections. 2-D mediolateral oblique (MLO) and craniocaudad (CC) views of both breasts were obtained. CAD: Full Field Digital Mammography with Computer Added Detection was performed. COMPARISON: Comparison is made with prior study dated 06/07/2019 and 06/02/2018. FINDINGS: Breast Composition: The breasts are heterogeneously dense, which may obscure small masses. There are no dominant masses or suspicious calcifications. No other significant abnormalities are identified. There has been no significant change since the prior study. BI/SCREEN MAMM (CAD) W/HEATHER BILAT IMPRESSION: Stable bilateral screening mammogram. Yearly follow-up mammogram recommended. (A) ASSESSMENT CATEGORY: BIRADS Category 1: Negative. A letter regarding these results will be sent to the patient by the facility within 30 days. Approximately 10% of breast cancers are not detected by mammography. A normal mammogram should not delay biopsy of a clinically suspicious abnormality. [id number] Electronically Signed: Charles Dunham, at 8:38 EDT , Service support ,
== END ==
PROVIDERS: PCP Family Medicine; Referring Provider Family Medicine; Visit Provider Family Medicine
DX: Z12.31 Encounter for screening mammogram for malignant neoplasm of breast (principal)
CPT/HCPCS: 77063; 77067

== ENCOUNTER → 2020-08-15 09:48 | Outpatient (CLI) | payer BC, SELFPAY ==
[2020-08-15 12:19] LABS: Absolute Lymphocyte Count 2.96 X10^3/uL (0.83-4.51); Absolute Neutrophil Count 6.8 X10^3/uL (2.0-7.7); Basophil# 0.06 X10^3/uL; Basophil% 0.5 % (0-1); Eosinophil# 0.11 X10^3/uL; Hematocrit 37.5 % (37-47); Hemoglobin 11.2 g/dL (12.0-15.0); Lymphocyte # 2.96 X10^3/ul (4.0); Mean Corp Hgb Conc 29.9 g/dL (32-36); Mean Corpuscular Hgb 27.1 pg (27.0-32.0); Mean Corpuscular Volume 90.6 fL (81-99); Mean Platelet Vol. 9.7 fl (6.2-12.0); Monocyte# 1.35 X10^3/uL; Monocyte% 11.9 % (0-10); NRBC Flagged by Analyzer 0 % (0-5); Neutrophil # 6.83 X10^3/uL (2.7-7.7); Neutrophil % 60.1 % (47-70); Platelet Count 367 K/mm3 (150-450); RBC Distribution Width CV 18.6 % (11.6-14.6); RBC Distribution Width SD 59.7 fl (35.1-43.9); Red Blood Count 4.14 M/mm3 (4.2-5.4); White Blood Count 11.4 K/mm3 (4.4-11.0)
[2020-08-15 12:43] LABS: ALB/GLOB Ratio 1.3 RATIO (0.9-2.4); AST(SGOT) 23 U/L (15-37); Alanine Aminotransfer ALT/SGPT 37 U/L (13-56); Albumin, Serum 3.9 g/dL (3.2-5.0); Alkaline Phosphatase 77 U/L (45-117); Anion Gap 5 (5-15); BUN 14 mg/dL (7-18); BUN/Creat Ratio 17.3 RATIO (10-20); Calcium,Total 9.1 mg/dL (8.5-10.1); Chloride 103 mmol/L (98-107); Creatinine, Serum 0.81 mg/dL (0.55-1.02); EST Glomerular Filtration Rate 76 mL/min (>60); Est Glom Filt Rate - Afr Amer 92 mL/min (>60); Globulin 3.1 g/dL (2.2-4.2); Glucose 84 mg/dL (74-106); Potassium 3.7 mmol/L (3.5-5.1); Sodium Level 139 mmol/L (136-145)
== END ==
PROVIDERS: PCP Family Medicine; Referring Provider Internal Medicine Rheumatology; Visit Provider Internal Medicine Rheumatology
DX: M06.4 Inflammatory polyarthropathy (principal); Z79.899 Other long term (current) drug therapy; M79.7 Fibromyalgia; M18.0 Bilateral primary osteoarthritis of first carpometacarpal joints; M65.342 Trigger finger, left ring finger; M72.0 Palmar fascial fibromatosis [Dupuytren]; M47.892 Other spondylosis, cervical region; J30.89 Other allergic rhinitis; I47.1 Supraventricular tachycardia; I82.5Y9 Chronic embolism and thrombosis of unspecified deep veins of unspecified proximal lower extremity
CPT/HCPCS: 36415; 80053; 85025

== ENCOUNTER → 2020-08-30 09:42 | Outpatient (CLI) | payer BC, SELFPAY ==
[2020-08-30 12:34] LABS: Thyroid Stim Hormone (TSH) 1.56 uIU/mL (0.358-3.74)
== END ==
PROVIDERS: PCP Family Medicine; Referring Provider Family Medicine; Visit Provider Family Medicine
DX: R63.5 Abnormal weight gain (principal)
CPT/HCPCS: 36415; 84443

== ENCOUNTER 2020-09-17 17:26 | Emergency (ER) | payer BC, SELFPAY ==
[2020-09-17 17:27] VITALS: BP 161/79; PULSE 83; RESP 16; TEMP 36.4; O2SAT 99; BMI 33.6
--- NOTE | 2020-09-17 17:34 | EKG12_ITS ---
Test Reason : PALPITATIONS Blood Pressure : / mmHG Vent. Rate : 072 BPM Atrial Rate : 072 BPM P-R Int : 132 ms QRS Dur : 076 ms QT Int : 406 ms P-R-T Axes : 032 031 033 degrees QTc Int : 444 ms Normal sinus rhythm Normal ECG Confirmed by MARIELA ROBLES, ANI ([id number]), editor map MARYLIN CHEW ([id number]) on 09/20/2020 8:39:07 AM Referred By: NGHIA Confirmed By:ANI SIERRA MD
--- NOTE | 2020-09-17 18:03 | ED.VISSUMM ---
- ER Visit Summary Date of Service: 09/17/20 Chief Complaint: Hypertension, neck pain, palpitations History of Present Illness: The patient is a 65 F who presents with elevated blood pressures, neck pain, and palpitations that have been gradually gotten worse over the past 1 to 2 days. Patient states she feels some throbbing in her neck. Patient went to her primary care physician's office today who referred her to the emergency department for further evaluation of the pulsations in her neck. Patient describes the pain is dull and throbbing. Patient also admits to mild headache. Patient does admit to some shortness of breath. Patient states this is worse with exertion. Physical Examination: Vital signs are stable. Patient is afebrile. Patient is in no acute distress. Oral mucosa is pink and moist. Neck is supple. Trachea is midline. There is no JVD. There is a palpable pulse in the carotids bilaterally. There is no thrill. There are no carotid bruits auscultated. There are pulsations noted on the right side of her neck. Heart was regular rate and rhythm. Lungs are clear and equal bilaterally. Abdomen is soft. Bowel sounds are normal. There is no tenderness. Cranial nerves II through XII are intact. There are no focal motor or sensory deficits. Test Results: EKG was ordered. On my interpretation, there is a normal sinus rhythm with a rate of 72. There are no acute ST or T wave changes. CTA of the chest was obtained. There is no evidence of PE or aortic dissection. CTA of the neck was obtained. There is no aneurysm or dissection. There is minimal plaque formation noted in the bilateral carotid arteries. These were interpreted by the radiologist and reviewed by myself. CBC shows a mild anemia with a hemoglobin of 10.7 and pericardia 34.4. Comprehensive metabolic profile was within normal limits. PT with INR and PTT were within normal limits. Troponin was normal. Emergency Department Course and Treatment: Patient was feeling better on reevaluation. Patient wants to go home. Patient was instructed to follow-up with her primary care physician in 5 to 7 days. Patient understood and was agreeable with the plan. All questions were answered. Disposition: Discharge home Impression: 1. Dyspnea This note was generated with [id number] software. It may contain incorrect words, spelling, and punctuation that were not noted in review of the chart prior to signing ED Disposition - Plan for ED Patient: Disposition: Home or Assisted Living Diagnosis: Dyspnea Instructions: ED Dyspnea Referrals: Moira Avalos MD [Primary Care Provider] - 3-5 Days
--- NOTE | 2020-09-17 18:09 | CT_ITS ---
STUDY: CTA CHEST REASON FOR EXAM: Female, 65 years old. Dyspnea on exertion. Calcifications. Pulsation and neck with neck pain for 2 days. RADIATION DOSAGE (If Supplied By Facility): CTDIvol = ( 18.84 ) mGy, DLP = ( 1637.37 ) mGycm TECHNIQUE: The examination was performed with the intravenous administration of IV 100mL Isovue-370. Post-processing of the angiographic images was performed, with multiplanar reformation and 3D reconstruction. Individualized dose optimization techniques were used for this CT. COMPARISON: None. FINDINGS: Normal enhancement of the main pulmonary artery and right and left pulmonary arteries. Normal enhancement of the bilateral peripheral pulmonary arteries. There is no demonstrated pulmonary embolism. Mild tortuosity of thoracic aorta without aneurysm. There is no demonstrated aortic dissection. Normal heart and pericardium. Normal mediastinum. Normal hilar regions. Normal visualized trachea and bronchi. The lungs are well expanded. Normal pulmonary parenchyma. Normal pleura. Normal chest wall structures. Minimal degenerative changes of the thoracic spine and exaggerated kyphosis. There is a small hiatal hernia. There is a cyst in segment 4A of the liver. CT/CTA Chest W/WO Contrast IMPRESSION: 1. Normal CTA chest examination, without a demonstrated pulmonary embolism or arterial dissection. 2. Degenerative changes of the thoracic spine. 3. Small hiatal hernia. Electronically Signed: Rick Pickens DO at 19:39 EST Tel [phone], Service support ,
[2020-09-17 18:23] LABS: Absolute Lymphocyte Count 2.23 X10^3/uL (0.83-4.51); Absolute Neutrophil Count 4.9 X10^3/uL (2.0-7.7); Basophil# 0.07 X10^3/uL; Basophil% 0.9 % (0-1); Eosinophil# 0.09 X10^3/uL; Eosinophils% 1.1 % (0-5); Hematocrit 34.4 % (37-47); Hemoglobin 10.7 g/dL (12.0-15.0); Lymphocyte # 2.23 X10^3/ul (4.0); Lymphocyte % 27.3 % (19-41); Mean Corp Hgb Conc 31.1 g/dL (32-36); Mean Corpuscular Hgb 26.7 pg (27.0-32.0); Mean Corpuscular Volume 85.8 fL (81-99); Mean Platelet Vol. 8.9 fl (6.2-12.0); Monocyte# 0.83 X10^3/uL; Monocyte% 10.2 % (0-10); NRBC Flagged by Analyzer 0 % (0-5); Neutrophil # 4.93 X10^3/uL (2.7-7.7); Neutrophil % 60.3 % (47-70); Platelet Count 373 K/mm3 (150-450); RBC Distribution Width CV 18.9 % (11.6-14.6); RBC Distribution Width SD 58.4 fl (35.1-43.9); Red Blood Count 4.01 M/mm3 (4.2-5.4); White Blood Count 8.2 K/mm3 (4.4-11.0)
[2020-09-17 18:33] VITALS: BP 133/76; PULSE 73; RESP 16; O2SAT 98
[2020-09-17 18:51] LABS: ALB/GLOB Ratio 1.3 RATIO (0.9-2.4); AST(SGOT) 35 U/L (15-37); Alanine Aminotransfer ALT/SGPT 42 U/L (13-56); Alkaline Phosphatase 77 U/L (45-117); Anion Gap 8 (5-15); BUN 17 mg/dL (7-18); BUN/Creat Ratio 17.1 RATIO (10-20); Calcium,Total 9.2 mg/dL (8.5-10.1); Chloride 103 mmol/L (98-107); Creatinine, Serum 0.99 mg/dL (0.55-1.02); EST Glomerular Filtration Rate 60 mL/min (>60); Est Glom Filt Rate - Afr Amer 73 mL/min (>60); Estimated Creatinine Clearance 48.11 ml/min; Globulin 3.1 g/dL (2.2-4.2); Glucose 95 mg/dL (74-106); International Normalized Ratio 1.4; Potassium 3.8 mmol/L (3.5-5.1); Protein, Total 7.1 g/dL (6.4-8.2); Prothrombin Time (Protime)PT. 16.5 SECONDS (11.7-14.9); Sodium Level 138 mmol/L (136-145)
[2020-09-17 18:52] LABS: Partial Thromboplast Time 33.7 Seconds (24.1-36.2)
[2020-09-17 18:55] LABS: Lactic Acid 0.9 mmol/L (0.4-1.9)
--- NOTE | 2020-09-17 18:55 | CT_ITS ---
STUDY: CTA NECK WITH CONTRAST REASON FOR EXAM: Female, 65 years old. Dyspnea on exertion. Chest palpitations. Pulsation of the neck with neck pain for 2 days. RADIATION DOSAGE (If Supplied By Facility): CTDIvol = ( 18.84 ) mGy, DLP = ( 1637.37 ) mGycm TECHNIQUE: CT angiography with multi-detector data acquisition was performed from the aortic arch to the skull base following intravenous administration of IV 100mL Isovue-370. MIP images were reconstructed from the axial data set. Post-processing of the angiographic images was performed, with multiplanar reformation and 3D reconstruction. Individualized dose optimization techniques were used for this CT. COMPARISON: CTA of the chest, 09/17/2020. FINDINGS: AORTIC ARCH: Normal visualized aortic arch. Normal origins of the brachiocephalic, left common carotid, and left subclavian arteries. RIGHT CAROTID ARTERIES: Normal right common carotid artery (CCA). There is minimal atherosclerotic changes at the carotid bifurcation without stenosis. Normal carotid bulb. Normal origin of the right internal carotid (ICA) artery without a hemodynamically significant stenosis. Normal visualized cervical portion of the right internal carotid artery. Normal origin of the right external carotid artery (ECA). LEFT CAROTID ARTERIES: Tortuosity of the proximal left common carotid artery (CCA). The calcifications at the carotid bifurcation without significant stenosis. Normal carotid bulb. Normal origin of the left internal carotid (ICA) artery without a hemodynamically significant stenosis. Tortuosity of the visualized cervical portion of the left internal carotid artery. Normal origin of the left external carotid artery (ECA). VERTEBRAL ARTERIES: Normal bilateral vertebral arteries. There are degenerative changes of the cervical spine. Lung apices are clear. Normal thyroid. CT/CTA Neck W/WO Contrast IMPRESSION: 1. Bilateral hemodynamically insignificant carotid plaque by NASCET criteria. 2. Mild tortuosity of the proximal left common carotid artery and left internal carotid artery. 3. Normal vertebral arteries. Electronically Signed: Rick Pickens DO at 19:42 EST Tel [phone], Service support ,
[2020-09-17 19:17] VITALS: BP 122/64; PULSE 83; RESP 16; O2SAT 98
[2020-09-17 20:34] VITALS: BP 136/84; PULSE 82; RESP 16; O2SAT 99
[2020-09-17 21:32] VITALS: BP 125/58; PULSE 76; RESP 16; O2SAT 96
[2020-09-17 22:05] VITALS: BP 138/66; PULSE 69; RESP 12; O2SAT 96
== END 2020-09-17 22:06 | disposition home or self-care (01) ==
PROVIDERS: Emergency Provider Emergency Medicine; PCP Family Medicine
DX: R06.00 Dyspnea, unspecified (principal); I10 Essential (primary) hypertension; R51.9 Headache, unspecified; M54.2 Cervicalgia; R00.2 Palpitations; I73.00 Raynaud's syndrome without gangrene
CPT/HCPCS: 70498; 71275; 80053; 83605; 84484; 85025; 85610; 85730; 93005; 99285; Q9967; A4216

== ENCOUNTER → 2020-10-31 06:58 | Outpatient (CLI) | payer BC, SELFPAY ==
[2020-10-17 11:42] VITALS: BMI 31.1
--- NOTE | 2020-10-31 09:17 | STRESSREP ---
Stress Test Report Date: 10-31-2020 Procedure: Exercise tolerance test/imaging study Indications: Shortness of breath/dyspnea on exertion Consent: Per the patient Procedure: The patient exercised on a Gonzalez protocol for 6 minutes and 30 seconds completing Stage II and 30 seconds of Stage III achieving a peak heart rate of 137 bpm (87% predicted maximal heart rate) with a peak blood pressure 140/48 mmHg and a peak MET capacity of 7 METs. The baseline ECG demonstrated sinus rhythm. The peak exercise ECG demonstrated no obvious ECG changes. There were no cardiac dysrhythmias pretest, during exercise, or recovery. The functional capacity was considered average. There was no complaint of chest discomfort during exercise or recovery. The examination was discontinued secondary to dyspnea. Impression: 1. Technically adequate (percent predicted maximal heart rate greater than 85%) exercise tolerance test 2. Peak exercise ECG no obvious ECG changes 3. There were no cardiac dysrhythmias pretest, during exercise, or recovery 4. Nuclear images pending Myocardial perfusion imaging study: Technique: The patient was injected with 11.7 mCi of technetium 99m Cardiolite and subsequently rest SPECT Cardiolite nuclear imaging was obtained in the horizontal long, vertical long, and short axis views. The patient exercised on a Gonzalez protocol for 6 minutes and 30 seconds completing Stage II and 30 seconds of Stage III achieving a peak heart rate of 137 bpm (87% predicted maximal heart rate) with a peak blood pressure 140/48 mmHg and a peak MET capacity of 7 METs. The patient was injected with 35.0 mCi of technetium 99m Cardiolite and subsequently stress SPECT Cardiolite nuclear imaging was obtained in the horizontal long, vertical long, and short axis views. A gated Cardiolite study at peak stress was obtained. Interpretation: Rest and stress SPECT Cardiolite nuclear imaging status post realignment, normalization, and attenuation correction, demonstrates at rest the appearance of an area of diminished tracer uptake near the basal towards mid interventricular septal area which status post arrest appears to improve/normalize. There is end systolic thickening and brightening. The gated Cardiolite study demonstrates myocardial thickening and inward wall motion. The reported LVEF is 75%. Impression: 1. Rest and stress SPECT Cardiolite nuclear imaging demonstrate Shan perfusion changes at rest which appear to improve/normalize following stress appearing compatible shifting soft tissue attenuation/artifact with no myocardial perfusion changes considered diagnostic for associated stress-induced myocardial ischemia. 2. The gated Cardiolite study reports an LVEF of 75%. This note was generated with [employer]ation software. It may contain incorrect words, spelling, and punctuation that were not noted in checking the note before signing.
== END ==
PROVIDERS: PCP Family Medicine; Referring Provider Internal Medicine Cardiovascular Disease; Visit Provider Internal Medicine Cardiovascular Disease
DX: R06.00 Dyspnea, unspecified (principal); I47.1 Supraventricular tachycardia; I10 Essential (primary) hypertension; J45.909 Unspecified asthma, uncomplicated; I87.1 Compression of vein
CPT/HCPCS: 78452; 93017; A9500; A4216

== ENCOUNTER → 2020-11-06 07:18 | Outpatient (CLI) | payer BC, SELFPAY ==
[2020-10-17 11:42] VITALS: BMI 31.1
[2020-11-06 10:32] LABS: Absolute Lymphocyte Count 1.61 X10^3/uL (0.83-4.51); Basophil# 0.06 X10^3/uL; Basophil% 0.9 % (0-1); Eosinophil# 0.15 X10^3/uL; Eosinophils% 2.3 % (0-5); Hematocrit 35.2 % (37-47); Hemoglobin 10.8 g/dL (12.0-15.0); Lymphocyte # 1.61 X10^3/ul (4.0); Mean Corp Hgb Conc 30.7 g/dL (32-36); Mean Corpuscular Hgb 26.5 pg (27.0-32.0); Mean Corpuscular Volume 86.5 fL (81-99); Mean Platelet Vol. 9.4 fl (6.2-12.0); Monocyte# 0.57 X10^3/uL; Monocyte% 8.9 % (0-10); NRBC Flagged by Analyzer 0 % (0-5); Neutrophil # 4.02 X10^3/uL (2.7-7.7); Neutrophil % 62.6 % (47-70); Platelet Count 399 K/mm3 (150-450); RBC Distribution Width CV 18.9 % (11.6-14.6); RBC Distribution Width SD 59.7 fl (35.1-43.9); Red Blood Count 4.07 M/mm3 (4.2-5.4); White Blood Count 6.4 K/mm3 (4.4-11.0)
[2020-11-06 10:47] LABS: ALB/GLOB Ratio 1.2 RATIO (0.9-2.4); AST(SGOT) 23 U/L (15-37); Alanine Aminotransfer ALT/SGPT 25 U/L (13-56); Albumin, Serum 3.7 g/dL (3.2-5.0); Alkaline Phosphatase 66 U/L (45-117); Anion Gap 7 (5-15); BUN 23 mg/dL (7-18); BUN/Creat Ratio 22.8 RATIO (10-20); Calcium,Total 8.9 mg/dL (8.5-10.1); Chloride 105 mmol/L (98-107); Creatinine, Serum 1.01 mg/dL (0.55-1.02); EST Glomerular Filtration Rate 59 mL/min (>60); Est Glom Filt Rate - Afr Amer 71 mL/min (>60); Glucose 98 mg/dL (74-106); Potassium 3.7 mmol/L (3.5-5.1); Protein, Total 6.7 g/dL (6.4-8.2); Sodium Level 140 mmol/L (136-145)
== END ==
PROVIDERS: PCP Family Medicine; Referring Provider Internal Medicine Rheumatology; Visit Provider Internal Medicine Rheumatology
DX: M06.4 Inflammatory polyarthropathy (principal); Z79.899 Other long term (current) drug therapy; M79.7 Fibromyalgia; M18.0 Bilateral primary osteoarthritis of first carpometacarpal joints; M65.342 Trigger finger, left ring finger
CPT/HCPCS: 36415; 80053; 85025

== ENCOUNTER → 2021-01-24 07:11 | Outpatient (CLI) | payer BC, SELFPAY ==
[2020-10-17 11:42] VITALS: BMI 31.1
[2021-01-24 10:33] LABS: Absolute Lymphocyte Count 1.87 X10^3/uL (0.83-4.51); Absolute Neutrophil Count 5.2 X10^3/uL (2.0-7.7); Basophil# 0.07 X10^3/uL; Basophil% 0.9 % (0-1); Eosinophil# 0.12 X10^3/uL; Eosinophils% 1.5 % (0-5); Hematocrit 35.7 % (37-47); Hemoglobin 10.8 g/dL (12.0-15.0); Lymphocyte # 1.87 X10^3/ul (0.83-4.51); Lymphocyte % 23.1 % (19-41); Mean Corp Hgb Conc 30.3 g/dL (32-36); Mean Corpuscular Hgb 27.1 pg (27.0-32.0); Mean Corpuscular Volume 89.5 fL (81-99); Mean Platelet Vol. 9.2 fl (6.2-12.0); Monocyte# 0.79 X10^3/uL; Monocyte% 9.8 % (0-10); NRBC Flagged by Analyzer 0 % (0-5); Neutrophil # 5.23 X10^3/uL (2.7-7.7); Neutrophil % 64.6 % (47-70); Platelet Count 336 K/mm3 (150-450); RBC Distribution Width CV 17.9 % (11.6-14.6); RBC Distribution Width SD 57.1 fl (35.1-43.9); Red Blood Count 3.99 M/mm3 (4.2-5.4); White Blood Count 8.1 K/mm3 (4.4-11.0)
[2021-01-24 10:56] LABS: ALB/GLOB Ratio 1.2 RATIO (0.9-2.4); AST(SGOT) 30 U/L (15-37); Alanine Aminotransfer ALT/SGPT 32 U/L (13-56); Albumin, Serum 3.6 g/dL (3.2-5.0); Alkaline Phosphatase 69 U/L (45-117); Anion Gap 8 (5-15); BUN 22 mg/dL (7-18); Calcium,Total 9.3 mg/dL (8.5-10.1); Chloride 103 mmol/L (98-107); EST Glomerular Filtration Rate 59 mL/min (>60); Est Glom Filt Rate - Afr Amer 72 mL/min (>60); Globulin 3.1 g/dL (2.2-4.2); Glucose 134 mg/dL (74-106); Potassium 3.7 mmol/L (3.5-5.1); Protein, Total 6.7 g/dL (6.4-8.2); Sodium Level 138 mmol/L (136-145)
== END ==
PROVIDERS: PCP Family Medicine; Referring Provider Internal Medicine Rheumatology; Visit Provider Internal Medicine Rheumatology
DX: M06.4 Inflammatory polyarthropathy (principal); Z79.899 Other long term (current) drug therapy; M79.7 Fibromyalgia; M18.0 Bilateral primary osteoarthritis of first carpometacarpal joints; M65.342 Trigger finger, left ring finger; M72.0 Palmar fascial fibromatosis [Dupuytren]; M47.892 Other spondylosis, cervical region; J30.89 Other allergic rhinitis; I82.5Y9 Chronic embolism and thrombosis of unspecified deep veins of unspecified proximal lower extremity; I47.1 Supraventricular tachycardia
CPT/HCPCS: 36415; 80053; 85025

== ENCOUNTER → 2021-02-04 13:21 | Outpatient (CLI) | payer BC, SELFPAY ==
[2020-10-17 11:42] VITALS: BMI 31.1
[2021-02-04 17:23] LABS: Hemoglobin A1c 5.3 % (3.8-5.6)
== END ==
PROVIDERS: PCP Family Medicine; Referring Provider Family Medicine; Visit Provider Family Medicine
DX: R73.09 Other abnormal glucose (principal)
CPT/HCPCS: 36415; 83036

== ENCOUNTER → 2021-04-21 09:28 | Outpatient (CLI) | payer BC, SELFPAY ==
[2020-10-17 11:42] VITALS: BMI 31.1
[2021-04-21 12:12] LABS: Absolute Lymphocyte Count 1.57 X10^3/uL (0.83-4.51); Absolute Neutrophil Count 4.3 X10^3/uL (2.0-7.7); Basophil# 0.07 X10^3/uL; Eosinophil# 0.14 X10^3/uL; Eosinophils% 2.1 % (0-5); Lymphocyte # 1.57 X10^3/ul (0.83-4.51); Lymphocyte % 23.4 % (19-41); Mean Corp Hgb Conc 31.4 g/dL (32-36); Mean Corpuscular Hgb 27.7 pg (27.0-32.0); Mean Corpuscular Volume 88.2 fL (81-99); Mean Platelet Vol. 9.3 fl (6.2-12.0); Monocyte# 0.66 X10^3/uL; Monocyte% 9.9 % (0-10); NRBC Flagged by Analyzer 0 % (0-5); Neutrophil # 4.25 X10^3/uL (2.7-7.7); Neutrophil % 63.5 % (47-70); Platelet Count 360 K/mm3 (150-450); RBC Distribution Width CV 18.4 % (11.6-14.6); RBC Distribution Width SD 58.7 fl (35.1-43.9); Red Blood Count 3.97 M/mm3 (4.2-5.4); White Blood Count 6.7 K/mm3 (4.4-11.0)
[2021-04-21 12:29] LABS: ALB/GLOB Ratio 1.2 RATIO (0.9-2.4); AST(SGOT) 30 U/L (15-37); Alanine Aminotransfer ALT/SGPT 38 U/L (13-56); Alkaline Phosphatase 68 U/L (45-117); Anion Gap 6 (5-15); BUN 24 mg/dL (7-18); BUN/Creat Ratio 27.3 RATIO (10-20); Calcium,Total 9.3 mg/dL (8.5-10.1); Chloride 104 mmol/L (98-107); Creatinine, Serum 0.88 mg/dL (0.55-1.02); EST Glomerular Filtration Rate 69 mL/min (>60); Est Glom Filt Rate - Afr Amer 83 mL/min (>60); Globulin 3.2 g/dL (2.2-4.2); Glucose 86 mg/dL (74-106); Potassium 3.7 mmol/L (3.5-5.1); Protein, Total 7.2 g/dL (6.4-8.2); Sodium Level 138 mmol/L (136-145)
== END ==
PROVIDERS: PCP Family Medicine; Referring Provider Internal Medicine Rheumatology; Visit Provider Internal Medicine Rheumatology
DX: M06.4 Inflammatory polyarthropathy (principal); Z79.899 Other long term (current) drug therapy; M79.7 Fibromyalgia; M18.0 Bilateral primary osteoarthritis of first carpometacarpal joints; M65.342 Trigger finger, left ring finger
CPT/HCPCS: 36415; 80053; 85025

== ENCOUNTER → 2021-05-21 16:04 | Outpatient (CLI) | payer BC, SELFPAY ==
--- NOTE | 2021-05-21 16:07 | RAD_ITS ---
STUDY: X-RAY - RIGHT FOOT CLINICAL: Female, 66 years old. PAIN TECHNIQUE: 3 radiographic view(s) of the foot. COMPARISON: None. FINDINGS: Normal talus, calcaneus, and tarsal bones. Inferior calcaneal heel spur. Normal visualized subtalar, talonavicular, calcaneocuboid, tarsal and tarsometatarsal articulations. Normal metatarsi. There is degenerative arthrosis of the metatarsophalangeal joint of the hallux with a hallux valgus deformity. Normal tibial and fibular sesamoid bones. Normal interphalangeal joint of the great toe. Normal phalanges of the great toe. Normal second through fifth metatarsophalangeal joints. Normal interphalangeal joints and phalanges of the lesser toes. The soft tissue structures are unremarkable. Vascular calcifications. RAD/Foot min 3 Views IMPRESSION: Hallux valgus. Heel spur. Electronically Signed: Tramaine Milligan MD at 3:33 EDT Tel , Service support ,
== END ==
PROVIDERS: PCP Family Medicine; Referring Provider Podiatrist; Visit Provider Podiatrist
DX: M19.90 Unspecified osteoarthritis, unspecified site (principal)
CPT/HCPCS: 73630

== ENCOUNTER → 2021-06-17 13:10 | Outpatient (CLI) | payer BC, SELFPAY ==
[2021-06-17 16:33] LABS: Ferritin 11 ng/mL (8-252); Iron 52 ug/dL (50-170); Iron Binding Capacity,Total 429 ug/dL (250-450)
[2021-06-17 16:55] LABS: Vitamin B12 474 pg/mL (211-911)
== END ==
PROVIDERS: PCP Family Medicine; Referring Provider Internal Medicine Gastroenterology; Visit Provider Internal Medicine Gastroenterology
DX: D64.9 Anemia, unspecified (principal)
CPT/HCPCS: 36415; 82607; 82728; 82746; 83540; 83550

== ENCOUNTER → 2021-07-10 09:50 | Outpatient (CLI) | payer BC, SELFPAY ==
[2021-07-10 12:06] LABS: Absolute Lymphocyte Count 1.92 X10^3/uL (0.83-4.51); Absolute Neutrophil Count 4.3 X10^3/uL (2.0-7.7); Basophil# 0.07 X10^3/uL; Basophil% 0.9 % (0-1); Eosinophil# 0.16 X10^3/uL; Eosinophils% 2.2 % (0-5); Hematocrit 36.3 % (37-47); Hemoglobin 11.2 g/dL (12.0-15.0); Lymphocyte # 1.92 X10^3/ul (0.83-4.51); Mean Corp Hgb Conc 30.9 g/dL (32-36); Mean Corpuscular Hgb 27.3 pg (27.0-32.0); Mean Corpuscular Volume 88.5 fL (81-99); Mean Platelet Vol. 9.3 fl (6.2-12.0); Monocyte% 12.2 % (0-10); NRBC Flagged by Analyzer 0 % (0-5); Neutrophil # 4.32 X10^3/uL (2.7-7.7); Neutrophil % 58.4 % (47-70); Platelet Count 360 K/mm3 (150-450); RBC Distribution Width CV 18.2 % (11.6-14.6); RBC Distribution Width SD 58.4 fl (35.1-43.9); White Blood Count 7.4 K/mm3 (4.4-11.0)
[2021-07-10 12:22] LABS: ALB/GLOB Ratio 1.1 RATIO (0.9-2.4); AST(SGOT) 31 U/L (15-37); Alanine Aminotransfer ALT/SGPT 39 U/L (13-56); Albumin, Serum 3.8 g/dL (3.2-5.0); Alkaline Phosphatase 67 U/L (45-117); Anion Gap 7 (5-15); BUN 22 mg/dL (7-18); BUN/Creat Ratio 23.8 RATIO (10-20); Calcium,Total 9.2 mg/dL (8.5-10.1); Chloride 107 mmol/L (98-107); Creatinine, Serum 0.93 mg/dL (0.55-1.02); EST Glomerular Filtration Rate 65 mL/min (>60); Est Glom Filt Rate - Afr Amer 78 mL/min (>60); Globulin 3.5 g/dL (2.2-4.2); Glucose 96 mg/dL (74-106); Potassium 3.7 mmol/L (3.5-5.1); Protein, Total 7.3 g/dL (6.4-8.2); Sodium Level 142 mmol/L (136-145)
== END ==
PROVIDERS: PCP Family Medicine; Referring Provider Internal Medicine Rheumatology; Visit Provider Internal Medicine Rheumatology
DX: M06.4 Inflammatory polyarthropathy (principal); Z79.899 Other long term (current) drug therapy; M79.7 Fibromyalgia; M18.0 Bilateral primary osteoarthritis of first carpometacarpal joints; M65.342 Trigger finger, left ring finger; M72.0 Palmar fascial fibromatosis [Dupuytren]; M47.892 Other spondylosis, cervical region; J30.89 Other allergic rhinitis; I47.1 Supraventricular tachycardia; I82.5Y9 Chronic embolism and thrombosis of unspecified deep veins of unspecified proximal lower extremity
CPT/HCPCS: 36415; 80053; 85025

== ENCOUNTER → 2021-07-17 13:06 | Outpatient (CLI) | payer BC, SELFPAY ==
--- NOTE | 2021-07-17 13:09 | BI_ITS ---
MAMMOGRAPHY - BILATERAL SCREENING REASON FOR EXAM: Female, 66 years old. Routine annual screening examination. PERTINENT HISTORY: Non-contributory. TECHNIQUE: Digital bilateral breast heather (3D mammographic acquisition) in the CC and MLO projections. 2-D mediolateral oblique (MLO) and craniocaudad (CC) views of both breasts were obtained. CAD: Full Field Digital Mammography with Computer Added Detection was performed. COMPARISON: Comparison is made with prior examination dated 06/27/2020 and 06/07/2019. FINDINGS: Breast Composition: The breasts are heterogeneously dense, which may obscure small masses. There are no dominant masses or suspicious calcifications. No other significant abnormalities are identified. There has been no significant change since the prior study. BI/SCRN MAMM (CAD)W/HEATHER BILAT IMPRESSION: Stable bilateral screening mammogram. Yearly follow-up mammogram recommended. (A) ASSESSMENT CATEGORY: BIRADS Category 2: Benign. A letter regarding these results will be sent to the patient by the facility within 30 days. Approximately 10% of breast cancers are not detected by mammography. A normal mammogram should not delay biopsy of a clinically suspicious abnormality. [id number] Electronically Signed: Charles Dunham MD at 14:12 EDT , Service support ,
== END ==
PROVIDERS: PCP Family Medicine; Referring Provider Family Medicine; Visit Provider Family Medicine
DX: Z12.31 Encounter for screening mammogram for malignant neoplasm of breast (principal)
CPT/HCPCS: 77063; 77067

== ENCOUNTER 2021-11-05 07:09 | Outpatient (CLI) | payer BC, SELFPAY ==
[2021-11-05 10:22] LABS: Absolute Lymphocyte Count 1.66 X10^3/uL (0.83-4.51); Absolute Neutrophil Count 4.3 X10^3/uL (2.0-7.7); Basophil# 0.05 X10^3/uL; Basophil% 0.7 % (0-1); Eosinophils% 1.5 % (0-5); Hematocrit 36.9 % (37-47); Hemoglobin 11.6 g/dL (12.0-15.0); Lymphocyte # 1.66 X10^3/ul (0.83-4.51); Lymphocyte % 24.9 % (19-41); Mean Corp Hgb Conc 31.4 g/dL (32-36); Mean Corpuscular Hgb 27.9 pg (27.0-32.0); Mean Corpuscular Volume 88.7 fL (81-99); Mean Platelet Vol. 9.7 fl (6.2-12.0); Monocyte# 0.53 X10^3/uL; Monocyte% 7.9 % (0-10); NRBC Flagged by Analyzer 0 % (0-5); Neutrophil # 4.32 X10^3/uL (2.7-7.7); Neutrophil % 64.7 % (47-70); Platelet Count 370 K/mm3 (150-450); RBC Distribution Width CV 19.3 % (11.6-14.6); Red Blood Count 4.16 M/mm3 (4.2-5.4); White Blood Count 6.7 K/mm3 (4.4-11.0)
[2021-11-05 10:34] LABS: ALB/GLOB Ratio 1.2 RATIO (0.9-2.4); AST(SGOT) 26 U/L (15-37); Alanine Aminotransfer ALT/SGPT 38 U/L (13-56); Albumin, Serum 3.9 g/dL (3.2-5.0); Alkaline Phosphatase 66 U/L (45-117); Anion Gap 6 (5-15); BUN 22 mg/dL (7-18); BUN/Creat Ratio 21.2 RATIO (10-20); Calcium,Total 9.1 mg/dL (8.5-10.1); Chloride 104 mmol/L (98-107); Creatinine, Serum 1.04 mg/dL (0.55-1.02); EST Glomerular Filtration Rate 57 mL/min (>60); Est Glom Filt Rate - Afr Amer 69 mL/min (>60); Globulin 3.3 g/dL (2.2-4.2); Glucose 90 mg/dL (74-106); Potassium 3.6 mmol/L (3.5-5.1); Protein, Total 7.2 g/dL (6.4-8.2); Sodium Level 139 mmol/L (136-145)
== END 2021-11-05 23:59 | disposition home or self-care (01) ==
LOC: MTLAB 07:11
PROVIDERS: PCP Family Medicine; Referring Provider Internal Medicine Rheumatology; Visit Provider Internal Medicine Rheumatology
DX: M06.4 Inflammatory polyarthropathy (principal); I82.5Y9 Chronic embolism and thrombosis of unspecified deep veins of unspecified proximal lower extremity; I47.1 Supraventricular tachycardia; Z79.899 Other long term (current) drug therapy; M79.7 Fibromyalgia; M18.0 Bilateral primary osteoarthritis of first carpometacarpal joints; M65.342 Trigger finger, left ring finger; M72.0 Palmar fascial fibromatosis [Dupuytren]; M47.892 Other spondylosis, cervical region; J30.89 Other allergic rhinitis
CPT/HCPCS: 36415; 80053; 85025

== ENCOUNTER 2021-11-14 17:19 | Outpatient (CLI) | payer BC, SELFPAY ==
--- NOTE | 2021-11-14 17:22 | US_ITS ---
STUDY: THYROID ULTRASOUND REASON FOR EXAM: Female, 66 years old. NONTOXIC GOITER TECHNIQUE: Ultrasound evaluation of the thyroid was performed with real-time and static jaimes-scale imaging. COMPARISON: 04/01/2017 FINDINGS: RIGHT LOBE: The right lobe of the thyroid gland measures 5.2 x 1.3 x 1.4 cm. There is a heterogeneous echotexture. Nodule 1:5 x 3 x 6 mm solid hypoechoic wider than tall ill-defined marginated nodule with no echogenic foci (TR 4) in the anterior right lobe consistent with a small adenoma. LEFT LOBE: The left lobe of the thyroid gland measures 5.1 x 1.3 x 1.1 cm. There is a heterogeneous echotexture. Nodule 2:4 x 3 x 5 mm cystic anechoic wider than tall smoothly marginated nodule with no echogenic foci (TR 1) in the anterior left lobe consistent with a colloid cyst. ISTHMUS: The isthmus measures 3 mm thick. . The regional lymph nodes are normal. US/Thyroid IMPRESSION: Thyroiditis but no dominant nodule. Electronically Signed: Benigno Rao MD at 8:32 EST ,
== END 2021-11-14 23:59 | disposition home or self-care (01) ==
PROVIDERS: PCP Family Medicine; Referring Provider Internal Medicine Pulmonary Disease; Visit Provider Internal Medicine Pulmonary Disease
DX: E04.9 Nontoxic goiter, unspecified (principal)
CPT/HCPCS: 76536

== ENCOUNTER 2021-12-17 07:17 | Outpatient (CLI) | payer BC, SELFPAY ==
[2021-12-17 10:38] LABS: T3 Uptake 35 % (30-39); T7 / Free Thyroxin Index 3.5 (1.4-4.5); Thyroid Stim Hormone (TSH) 1.67 uIU/mL (0.358-3.74)
[2021-12-23 12:00] LABS: Thyroid Peroxidase AB < 8 IU/mL (0-34)
[2021-12-23 13:14] LABS: Thyroglobulin Antibody < 1.0 IU/mL (0.0-0.9)
== END 2021-12-17 23:59 | disposition home or self-care (01) ==
LOC: MTLAB 07:18
PROVIDERS: PCP Family Medicine; Referring Provider Surgery; Visit Provider Surgery
DX: R93.89 Abnormal findings on diagnostic imaging of other specified body structures (principal)
CPT/HCPCS: 36415; 84436; 84443; 84479; 86376; 86800

== ENCOUNTER → 2022-02-05 | Outpatient (CLI) | payer BC, SELFPAY ==
[2022-02-05 10:02] LABS: Absolute Neutrophil Count 4.1 X10^3/uL (2.0-7.7); Basophil# 0.05 X10^3/uL; Basophil% 0.8 % (0-1); Eosinophil# 0.17 X10^3/uL; Eosinophils% 2.6 % (0-5); Hematocrit 36.4 % (37-47); Hemoglobin 11.4 g/dL (12.0-15.0); Lymphocyte % 24.5 % (19-41); Mean Corp Hgb Conc 31.3 g/dL (32-36); Mean Corpuscular Hgb 28.5 pg (27.0-32.0); Mean Platelet Vol. 9.6 fl (6.2-12.0); Monocyte# 0.62 X10^3/uL; Monocyte% 9.5 % (0-10); NRBC Flagged by Analyzer 0 % (0-5); Neutrophil # 4.06 X10^3/uL (2.7-7.7); Neutrophil % 62.3 % (47-70); Platelet Count 373 K/mm3 (150-450); RBC Distribution Width CV 17.9 % (11.6-14.6); RBC Distribution Width SD 59.1 fl (35.1-43.9); White Blood Count 6.5 K/mm3 (4.4-11.0)
[2022-02-05 10:54] LABS: ALB/GLOB Ratio 1.3 RATIO (0.9-2.4); AST(SGOT) 26 U/L (15-37); Alanine Aminotransfer ALT/SGPT 34 U/L (13-56); Albumin, Serum 3.8 g/dL (3.2-5.0); Alkaline Phosphatase 61 U/L (45-117); Anion Gap 9 (5-15); BUN 27 mg/dL (7-18); BUN/Creat Ratio 27.1 RATIO (10-20); Chloride 102 mmol/L (98-107); EST Glomerular Filtration Rate 60 mL/min (>60); Est Glom Filt Rate - Afr Amer 72 mL/min (>60); Glucose 100 mg/dL (74-106); Potassium 3.6 mmol/L (3.5-5.1); Protein, Total 6.8 g/dL (6.4-8.2); Sodium Level 138 mmol/L (136-145)
== END | disposition home or self-care (01) ==
LOC: MTLAB 07:07
PROVIDERS: PCP Family Medicine; Referring Provider Internal Medicine Rheumatology; Visit Provider Internal Medicine Rheumatology
DX: M06.4 Inflammatory polyarthropathy (principal); I82.5Y9 Chronic embolism and thrombosis of unspecified deep veins of unspecified proximal lower extremity; I47.1 Supraventricular tachycardia; Z79.899 Other long term (current) drug therapy; M79.7 Fibromyalgia; M18.0 Bilateral primary osteoarthritis of first carpometacarpal joints; M65.342 Trigger finger, left ring finger; M72.0 Palmar fascial fibromatosis [Dupuytren]; M47.892 Other spondylosis, cervical region; J30.89 Other allergic rhinitis
CPT/HCPCS: 36415; 80053; 85025

== ENCOUNTER → 2022-05-05 | Outpatient (CLI) | payer MEDICARE, BC, SELFPAY ==
[2022-05-05 10:31] LABS: Absolute Neutrophil Count 4.2 X10^3/uL (2.0-7.7); Basophil# 0.04 X10^3/uL; Basophil% 0.6 % (0-1); Eosinophil# 0.15 X10^3/uL; Eosinophils% 2.3 % (0-5); Hematocrit 36.4 % (37-47); Hemoglobin 11.5 g/dL (12.0-15.0); Lymphocyte % 23.4 % (19-41); Mean Corp Hgb Conc 31.6 g/dL (32-36); Mean Corpuscular Hgb 28.3 pg (27.0-32.0); Mean Corpuscular Volume 89.7 fL (81-99); Mean Platelet Vol. 9.7 fl (6.2-12.0); Monocyte# 0.51 X10^3/uL; NRBC Flagged by Analyzer 0 % (0-5); Neutrophil # 4.18 X10^3/uL (2.7-7.7); Neutrophil % 65.4 % (47-70); Platelet Count 309 K/mm3 (150-450); RBC Distribution Width CV 18.6 % (11.6-14.6); RBC Distribution Width SD 60.4 fl (35.1-43.9); Red Blood Count 4.06 M/mm3 (4.2-5.4); White Blood Count 6.4 K/mm3 (4.4-11.0)
[2022-05-05 11:14] LABS: ALB/GLOB Ratio 1.3 RATIO (0.9-2.4); AST(SGOT) 30 U/L (15-37); Alanine Aminotransfer ALT/SGPT 40 U/L (13-56); Albumin, Serum 3.8 g/dL (3.2-5.0); Alkaline Phosphatase 67 U/L (45-117); Anion Gap 6 (5-15); BUN 19 mg/dL (7-18); BUN/Creat Ratio 20.9 RATIO (10-20); Calcium,Total 9.3 mg/dL (8.5-10.1); Chloride 108 mmol/L (98-107); Creatinine, Serum 0.91 mg/dL (0.55-1.02); EST Glomerular Filtration Rate 66 mL/min (>60); Est Glom Filt Rate - Afr Amer 80 mL/min (>60); Glucose 84 mg/dL (74-106); Potassium 3.8 mmol/L (3.5-5.1); Protein, Total 6.8 g/dL (6.4-8.2); Sodium Level 141 mmol/L (136-145)
== END | disposition home or self-care (01) ==
LOC: MTLAB 09:16
PROVIDERS: PCP Family Medicine; Referring Provider Internal Medicine Rheumatology; Visit Provider Internal Medicine Rheumatology
DX: M06.4 Inflammatory polyarthropathy (principal); I82.5Y9 Chronic embolism and thrombosis of unspecified deep veins of unspecified proximal lower extremity; I47.1 Supraventricular tachycardia; Z79.899 Other long term (current) drug therapy; M79.7 Fibromyalgia; M18.0 Bilateral primary osteoarthritis of first carpometacarpal joints; M65.342 Trigger finger, left ring finger; M72.0 Palmar fascial fibromatosis [Dupuytren]; M47.892 Other spondylosis, cervical region; J30.89 Other allergic rhinitis
CPT/HCPCS: 36415; 80053; 85025

== ENCOUNTER → 2022-05-15 | Outpatient (CLI) | payer MEDICARE, BC, SELFPAY ==
--- NOTE | 2022-05-15 10:48 | RAD_ITS ---
EXAM: XR CHEST, 2 VIEWS CLINICAL INDICATION: PAIN TECHNIQUE: Frontal and lateral views of the chest. This report was created using [employer] report generation technology. COMPARISON: None. FINDINGS: LUNGS AND PLEURAL SPACES: Hyperinflation suggesting emphysema. No pneumothorax. No effusion. HEART: Normal. Normal heart size. MEDIASTINUM: Central airways and mediastinal contour are unremarkable. BONES/JOINTS: No acute abnormality. SOFT TISSUES: Normal. RAD/Chest PA and Lateral IMPRESSION: Hyperinflation suggesting emphysema. Electronically Signed: Sabas Pfeiffer MD at 11:23 EDT ,
--- NOTE | 2022-05-15 10:50 | RAD_ITS ---
EXAM: XR RIGHT HAND COMPLETE, 3 OR MORE VIEWS CLINICAL INDICATION: FALL WITH INJURY TECHNIQUE: Frontal, lateral and oblique views of the right hand. This report was created using [employer] report generation technology. COMPARISON: None. FINDINGS: BONES/JOINTS: Acute on fracture of the proximal base and articular surface of the fifth metacarpal. Degenerative narrowing of the MCP joints and lateral joints of the wrist. Absence of the first multangular which may be developmental or postoperative. SOFT TISSUES: Normal. No soft tissue swelling or gas. No radiopaque foreign body. RAD/Hand Min 3 Views IMPRESSION: Acute intra-articular fracture of the proximal base of the fifth metacarpal. Osteoarthritis. Electronically Signed: Sabas Pfeiffer MD at 11:30 EDT ,
[2022-05-20 14:09] LABS: QNTFERON TB Mitogen Value > 10.00 IU/mL (.); QNTFERON TB Nil Value 0.02 IU/mL (.); QNTFERON TB1+ Ag Value 0.04 IU/mL (.); QNTFERON TB2+ Ag Value 0.03 IU/mL (.)
[2022-05-20 16:14] LABS: QNTIFERON TB Positive Criteria Negative (Negative)
== END | disposition home or self-care (01) ==
LOC: MTLAB 10:46
PROVIDERS: PCP Family Medicine; Referring Provider Family Medicine; Visit Provider Family Medicine
DX: S62.316A Displaced fracture of base of fifth metacarpal bone, right hand, initial encounter for closed fracture (principal); M06.4 Inflammatory polyarthropathy; I82.5Y9 Chronic embolism and thrombosis of unspecified deep veins of unspecified proximal lower extremity; I47.1 Supraventricular tachycardia; R07.9 Chest pain, unspecified; M19.041 Primary osteoarthritis, right hand; Z79.899 Other long term (current) drug therapy; M79.7 Fibromyalgia; M18.0 Bilateral primary osteoarthritis of first carpometacarpal joints; M15.9 Polyosteoarthritis, unspecified; M65.342 Trigger finger, left ring finger; M72.0 Palmar fascial fibromatosis [Dupuytren]; M47.892 Other spondylosis, cervical region; J30.89 Other allergic rhinitis
CPT/HCPCS: 36415; 71046; 73130; 86480

== ENCOUNTER 2022-07-08 09:00 | Outpatient (RCR) | payer MEDICARE, BC, SELFPAY ==
--- NOTE | 2022-06-19 10:56 | HP.OTEVAL ---
Patient's Visit Information JP MASSEY is a 67 year old F, referred to Occupational Therapy by PARISH Abarca, with a diagnosis of right 5th metacarpal proximal base of articular surface. Date of Evaluation: 06/19/22 Occupational Therapist: Brenna Anthony, DEION/Becca, CHT - Subjective This 67 year old female was seen for OT eval with dx of right 5th metacarpal proximal base of articular surface. Pt also has OA deformities throughout hand. Pt states 05/13/22 she suffered fall- pt states she had cast on for 5 weeks as she wasn't casted until 05/15/22. pt is right handed. pt states she is limited with ADLs and IADls due to inability to use her right hand. Pt would like to return to a PLOF with ADLs and IADLs. Order calls for custom orthosis to provide protection and support while fx is still healing. - Pain right hand 0 Pain Intensity Range: 2 - ROM Wrist: left 65/65 right 45/30 MP: left 0/95 right 0/90 PIP: left 0/90 right 0/90 DIP: left 0/70 right 0/90 ROM Comments: pt demo with a decrease in right wrist ROM this is common with 5th metacarpal proximal base of articular surface. digit ROM is WNL - Strength Strength Comments: will test at week 6 - Sensation Sensation Comments: denies - Quick DASH-Disab of Arm,Shoulder& Hand Quick DASH Score: 61.3625 - Goals Goal:: will not initiate strengthening until week 6-7. pt will demo a right mainspring strip gauger strength of 30# or greater to return to using right hand with ADLs and IADls by d.c Goal:: pt will demo right wrist ROM equal to unaffected side by d/c to increase pts ind. with ADLs and IADLs Goal:: pt will report no pain greater than 1/10 with use of right hand with ADLs and IADLS by d.c Goal:: Pt will demo ind. Donning/doffing of custom orthosis by end of 1st session. Pt will demonstrate understanding of orthosis use and precautions by end of 1st session and demonstrate knowledge of returning to clinic if orthosis needs adj. to increase comfort by end of 1st session. - Rehabilitation General Assessment: pt arrives 5 weeks from casting in need of custom orthosis to provide protection and support while fx continues to heal- Pt demo with limited wrist ROM and is restricted with wt/B. increasing need of assistance with ADls and IADLs. Pt would benefit from skilled OT services 1-2x week for 3-4 weeks to ensure return of ROM and strength (strengthening after post 6 weeks from DOI) to return pt to PLOF. Today therapist marisa. custom orthosis to protect fx site - this was ulnar side of right hand including wrist due to fx site- pt was ed. in wearing when out of home and at night- may take off when sitting and may take off while showering- pt demo understanding- therapist advised pt to do skin checks to ensure on irritation. pt demo understanding- therapist initiate pt with short arch wrist ROM ex and gave handout - pt demo understanding and agree to POC. Rehabilitation Potential: Excellent - Anticipated Interventions A/AAROM/PROM, Strengthening, Modalities, Orthoses, Joint Protection/Energy Conservation, Ergonomic Education, Education re assistive Equipment, Education re Diagnosis, Home Program - Visit Plan Frequency: 1-2x /Week Duration: 2-4 Weeks TEXT: Thank you for the opportunity to evaluate your patient. For Medicare and Medicare HMO plans, please review the plan of care and approve it. It will need to be FAXED BACK to us at [phone] for Medicare purposes. Please let me know if there are questions or concerns regarding this plan of care. Physician Signature: Date:
--- NOTE | 2022-07-08 09:25 | HP.OTDCSUM ---
It has been my pleasure to treat JP MSASEY under orders from PARISH Abarca, for the diagnosis of right 5th metacarpal proximal base of articular surface for a total of 2 visit(s). Please see the following information for a summary of their discharge status. % Improvement: 90 Objective/Function: right wrist 60/60 a increase from 45/30. right power line installer strength 20# left is 35#. pt demo full ROM of composite fist-. pt has returned to her PLOF with daily tasks Patient Goals: Regain Mobility, Decrease Pain, Use Hand/Wrist/Arm Normally Again Goal:: will not initiate strengthening until week 6-7. pt will demo a right power line installer strength of 30# or greater to return to using right hand with ADLs and IADls by d.c Goal:: pt will demo right wrist ROM equal to unaffected side by d/c to increase pts ind. with ADLs and IADLs Goal:: pt will report no pain greater than 1/10 with use of right hand with ADLs and IADLS by d.c Goal:: Pt will demo ind. Donning/doffing of custom orthosis by end of 1st session. Pt will demonstrate understanding of orthosis use and precautions by end of 1st session and demonstrate knowledge of returning to clinic if orthosis needs adj. to increase comfort by end of 1st session. Discharge Comments: pt has met OT goals and at this time and is d/c with HEP. therapist did rec'd a comfort cool brace to decrease stress and pain with heavy work task and her Physical therapy. pt demo understanding. If there are questions or concerns regarding this patient's occupational therapy, please fell free to call me at [phone]. Thank you for the referral of this patient. Sincerely, Brenna Anthony, OTR/L, CHT
== END 2022-07-08 10:11 | disposition home or self-care (01) ==
LOC: OT 09:00
PROVIDERS: PCP Family Medicine
DX: S62.346A Nondisplaced fracture of base of fifth metacarpal bone, right hand, initial encounter for closed fracture (principal)
CPT/HCPCS: 97110; 97166; 97530; 97760

== ENCOUNTER → 2022-07-23 | Outpatient (CLI) | payer MEDICARE, BC, SELFPAY ==
--- NOTE | 2022-07-23 09:41 | BI_ITS ---
MAMMOGRAPHY - BILATERAL SCREENING REASON FOR EXAM: Female, 67 years old. Routine annual screening examination. PERTINENT HISTORY: Non-contributory. Remote left excisional breast biopsy. TECHNIQUE: Digital bilateral breast heather (3D mammographic acquisition) in the CC and MLO projections. 2-D mediolateral oblique (MLO) and craniocaudad (CC) views of both breasts were obtained. CAD: Full Field Digital Mammography with Computer Added Detection was performed. COMPARISON: Comparison is made with prior study dated 07/17/2021 and 06/27/2020. FINDINGS: Breast Composition: There are scattered areas of fibroglandular density. There are no dominant masses or suspicious calcifications. No other significant abnormalities are identified. There has been no significant change since the prior study. BI/SCRN MAMM (CAD)W/HEATHER BILAT IMPRESSION: Stable bilateral screening mammogram. Yearly follow-up mammogram recommended. (A) ASSESSMENT CATEGORY: BIRADS Category 1: Negative. A letter regarding these results will be sent to the patient by the facility within 30 days. Approximately 10% of breast cancers are not detected by mammography. A normal mammogram should not delay biopsy of a clinically suspicious abnormality. [id number] Electronically Signed: Charles Dunham MD at 11:01 EST ,
--- NOTE | 2022-07-23 09:46 | BD_ITS ---
STUDY: DUAL ENERGY X-RAY ABSORPTIOMETRY / DXA REASON FOR EXAM: Female, 67 years old. 733.90OsteopeniaBONE DENSITY REASON FOR EXAM TECHNIQUE: Bone Mineral Density (BMD) measurements of lumbar spine and bilateral hips were obtained. COMPARISON: Comparison is made with prior study 06/02/2018. FINDINGS: Lumbar Spine (L1-L4): g/cm2 (0.930) / T-score (-1.1) / Z-score (0.7) Findings are suggestive of osteopenia with a low fracture risk. Left Femur Total: g/cm2 (0.867) / T-score (-0.6) / Z-score (0.7) Left Femoral Neck: g/cm2 (0.758) / T-score (-0.8) / Z-score (0.7) Right Femur Total: g/cm2 (0.860) / T-score (-0.7) / Z-score (0.6) Right Femoral Neck: g/cm2 (0.737) / T-score (-1.0) / Z-score (0.5) The T-Scores on the most recent prior examination were: Lumbar Spine (L1-L4): There has been improvement of bone density since the previous examination. Left Femur Total: which represents an improvement of 8.7%. Right Femur Total: which represents an improvement of 9.5%. BD/Dexa Bone Density Study IMPRESSION: The patient is considered osteopenic as outlined below according to World Arron Organization (WHO) criteria with a low fracture risk. There has been improvement of bone density since the previous examination. Reference Information: The T-score is the number of standard deviations above or below the standard which is normal for young adults at their peak bone mineral density. The World Health Organization (WHO) interprets the T-scores as follows: Above -1 Normal bone density Between -1 and -2.5 Osteopenia Equal to / or below -2.5 Osteoporosis As a practical clinical guideline, osteopenia may be graded as follows: Mild -1 through -1.5 Moderate -1.6 through -2.0 Severe -2.1 through -2.4 The Z-score is the number of standard deviations above or below age-matched controls. A Z-score of less than -1.5 would be considered abnormal. References: 1. NIH Osteoporosis and Related Bone Diseases www osteo.org 2. International Society for Clinical Densitometry www iscd.org 3. National Osteoporosis Foundation www nof.org Electronically Signed: Charles Dunham MD at 9:03 EST ,
== END | disposition home or self-care (01) ==
LOC: OPBD 09:39
PROVIDERS: PCP Family Medicine; Visit Provider Family Medicine
DX: Z12.31 Encounter for screening mammogram for malignant neoplasm of breast (principal); Z92.89 Personal history of other medical treatment; M85.89 Other specified disorders of bone density and structure, multiple sites
CPT/HCPCS: 77063; 77067; 77080

== ENCOUNTER → 2022-08-04 | Outpatient (CLI) | payer MEDICARE, BC, SELFPAY ==
[2022-08-04 12:08] LABS: Absolute Lymphocyte Count 2.03 X10^3/uL (0.83-4.51); Absolute Neutrophil Count 4.2 X10^3/uL (2.0-7.7); Basophil# 0.06 X10^3/uL; Basophil% 0.8 % (0-1); Eosinophil# 0.17 X10^3/uL; Eosinophils% 2.3 % (0-5); Hematocrit 39.5 % (37-47); Hemoglobin 12.3 g/dL (12.0-15.0); Lymphocyte # 2.03 X10^3/ul (0.83-4.51); Lymphocyte % 27.9 % (19-41); Mean Corp Hgb Conc 31.1 g/dL (32-36); Mean Corpuscular Hgb 27.3 pg (27.0-32.0); Mean Corpuscular Volume 87.6 fL (81-99); Mean Platelet Vol. 9.1 fl (6.2-12.0); Monocyte# 0.82 X10^3/uL; Monocyte% 11.3 % (0-10); NRBC Flagged by Analyzer 0 % (0-5); Neutrophil # 4.18 X10^3/uL (2.7-7.7); Neutrophil % 57.4 % (47-70); Platelet Count 373 K/mm3 (150-450); RBC Distribution Width CV 17.6 % (11.6-14.6); RBC Distribution Width SD 56.1 fl (35.1-43.9); Red Blood Count 4.51 M/mm3 (4.2-5.4); White Blood Count 7.3 K/mm3 (4.4-11.0)
[2022-08-04 12:25] LABS: AST(SGOT) 30 U/L (15-37); Alanine Aminotransfer ALT/SGPT 57 U/L (13-56); Albumin, Serum 3.7 g/dL (3.2-5.0); Alkaline Phosphatase 78 U/L (45-117); Anion Gap 6 (5-15); BUN 19 mg/dL (7-18); BUN/Creat Ratio 19.2 RATIO (10-20); Calcium,Total 9.6 mg/dL (8.5-10.1); Chloride 103 mmol/L (98-107); Creatinine, Serum 0.99 mg/dL (0.55-1.02); EST Glomerular Filtration Rate 60 mL/min (>60); Est Glom Filt Rate - Afr Amer 72 mL/min (>60); Globulin 3.6 g/dL (2.2-4.2); Glucose 100 mg/dL (74-106); Potassium 3.9 mmol/L (3.5-5.1); Protein, Total 7.3 g/dL (6.4-8.2); Sodium Level 139 mmol/L (136-145)
== END | disposition home or self-care (01) ==
PROVIDERS: PCP Family Medicine; Referring Provider Internal Medicine Rheumatology; Visit Provider Internal Medicine Rheumatology
DX: M06.4 Inflammatory polyarthropathy (principal); I82.5Y9 Chronic embolism and thrombosis of unspecified deep veins of unspecified proximal lower extremity; I47.1 Supraventricular tachycardia; Z79.899 Other long term (current) drug therapy; M79.7 Fibromyalgia; M18.0 Bilateral primary osteoarthritis of first carpometacarpal joints; M65.342 Trigger finger, left ring finger; M72.0 Palmar fascial fibromatosis [Dupuytren]; M47.892 Other spondylosis, cervical region; J30.89 Other allergic rhinitis
CPT/HCPCS: 36415; 80053; 85025

== ENCOUNTER 2022-09-02 10:25 | Observation (INO) | payer MEDICARE, BC, SELFPAY ==
[2022-09-02] VITALS (13 sets, daily range): BP systolic 88–130; BP diastolic 56–88; PULSE 68–92; RESP 15–20; TEMP 36.4–37.2; O2SAT 92–98; BMI 33.2; BMI 34.2
--- NOTE | 2022-09-02 10:33 | ED.RN ---
WALK TEST PERFORMED WALKING TO ROOM. PATIENT'S OXYGEN SATURATION LEVEL STARTING OUT WAS 92% ON ROOM AIR, WHILE WALKING OXYGEN SATURATION DROPPED TO 87%. PATIENT DENIED FEELING SHORT OF BREATH OR LIGHTHEADED.
--- NOTE | 2022-09-02 11:19 | EKG12_ITS ---
Test Reason : SOB Blood Pressure : / mmHG Vent. Rate : 084 BPM Atrial Rate : 084 BPM P-R Int : 138 ms QRS Dur : 080 ms QT Int : 350 ms P-R-T Axes : 026 020 028 degrees QTc Int : 413 ms Normal sinus rhythm Normal ECG Confirmed by JOSE ENRIQUE ROBLES, AMRIK ([id number]), metropolitan editor MARYLIN CHEW ([id number]) on 09/03/2022 8:24:28 AM Referred By: Confirmed By:ARMIK QUISPE MD
--- NOTE | 2022-09-02 11:21 | EDS_ITS ---
HPI History of Present Illness Chief Complaint: Shortness of Breath Informant: patient Narrative Narrative: Patient sent in here after seeing her PCP today. Mild cough low-grade fever started 6 days ago. States dyspnea mild wheeze. History of asthma. No tobacco history. 2 COVID test negative. Symptoms progressing saw her PCP office today pulse ox 82% therefore sent here. 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 Denies chest or abdominal pain. Denies headache or myalgias. PE Risk Factors: Positive for Prior DVT or PE [facility] Medical History Asthma Pearce esophagus Carpal tunnel syndrome Essential hypertension GERD (gastroesophageal reflux disease) Homer's disease History of DVT (deep vein thrombosis) May-Thurner syndrome Osteoarthritis Raynauds disease Sjogrens syndrome SVT (supraventricular tachycardia) Thyroiditis Varicose veins of both lower extremities Home Medications diltiazem HCl 240 mg capsule,extended release 24 hr 240 mg PO DAILY BLOOD PRESSURE 07/06/13 [History Last Taken 09/02/22] fluticasone propionate 50 mcg/actuation nasal spray,suspension 2 sprays intranasal DAILY ALLERGIES 07/06/13 [History Last Taken 09/02/22] folic acid 1 mg tablet 2 mg PO QHS SUPPLEMENT 07/06/13 [History Last Taken 09/01/22] methotrexate sodium 2.5 mg tablet 20 mg PO SA RHEUMATOID ARTHRITIS 07/06/13 [History Last Taken 08/29/22] pantoprazole 40 mg tablet,delayed release 40 mg PO DAILY ACID REFLUX 09/17/20 [History Last Taken 09/02/22] rivaroxaban 20 mg tablet (Xarelto) 20 mg PO QHS BLOOD THINNER 09/17/20 [History Last Taken 09/01/22] cyclosporine 0.05 % eye drops in a dropperette (Restasis) 1 drp ophthalmic (eye) BID EYES 10/10/20 [History Last Taken 09/02/22] bupropion HCl 300 mg 24 hr tablet, extended release 1 tablet PO DAILY DEPRESSION 12/15/21 [History Last Taken 09/02/22] potassium chloride 20 mEq tablet,extended release(part/cryst) 1 tablet PO QPM SUPPLEMENT 12/15/21 [History Last Taken 09/01/22] etanercept 50 mg/mL (1 mL) subcutaneous syringe (Enbrel) 50 mg subcut MO RHEUMATOID ARTHRITIS 06/03/22 [History Last Taken 08/31/22] hydrochlorothiazide 25 mg tablet 25 mg PO DAILY FLUID/BLOOD PRESSURE 06/03/22 [History Last Taken 09/02/22] valsartan 160 mg tablet 160 mg PO DAILY BLOOD PRESSURE 06/03/22 [History Last Taken 09/02/22] acetaminophen 500 mg tablet 500 mg PO Q6H PRN Pain 09/02/22 [History Last Taken 09/01/22] ascorbic acid (vitamin C) 1,000 mg tablet (Vitamin C) 1,000 mg PO BID SUPPLEMENT 09/02/22 [History Last Taken 09/02/22] calcium citrate 1,000 mg PO/SL BID SUPPLEMENT 09/02/22 [History Last Taken 09/02/22] cyanocobalamin (vitamin B-12) 1,000 mcg tablet (Vitamin B-12) 1,000 mcg PO QPM SUPPLEMENT 09/02/22 [History Last Taken 09/01/22] magnesium oxide 400 mg PO QPM SUPPLEMENT 09/02/22 [History Last Taken 09/01/22] plecanatide 3 mg tablet (Trulance) 3 mg PO DAILY IBS 09/02/22 [History Last Taken 09/02/22] tramadol 50 mg tablet 50 mg PO TID PRN RHEUMATOID ARTHRITIS 09/02/22 [History Last Taken Unknown] zinc acetate 50 mg (zinc) capsule 50 mg PO QPM SUPPLEMENT 09/02/22 [History Last Taken 09/01/22] Allergy/AdvReac Type Severity Reaction Status Date / Time No Known Allergies Allergy Verified 09/02/22 10:29 Family History Father Presence of permanent cardiac pacemaker Atrial fibrillation Grandmother Diabetes Mother CVA (cerebral vascular accident) Myocardial infarction Atrial fibrillation Hypertension Sister Presence of permanent cardiac pacemaker Surgical History History of bilateral carpal tunnel release History of cholecystectomy History of colonoscopy (~2020) History of elbow surgery History of embolic filter insertion History of esophagogastroduodenoscopy (EGD) (~2020) History of hysterectomy History of left breast biopsy History of total bilateral knee replacement History of varicose vein stripping Hx of fasciotomy Status post insertion of iliac artery stent Social History Smoking Status: Never smoker alcohol intake: never substance use type: does not use caffeine: Yes Type: carbonated beverages Number of servings: 2 ROS ROS ED Constitutional Constitutional ED: Reports fever(s); Denies chills or sweats Eyes Eyes: Denies change in vision ENT ENT ED: Denies dysphagia or sore throat Cardiovascular Cardiovascular: Denies chest pain, leg edema, palpitations or racing heartbeat Respiratory/Chest Respiratory/Chest: Reports cough and dyspnea; Denies dyspnea on exertion Gastrointestinal Gastrointestinal: Denies abdominal pain, diarrhea, nausea or vomiting Genitourinary Genitourinary ED: Denies dysuria, hematuria or urinary frequency Musculoskeletal Musculoskeletal: Denies back pain, extremity pain or neck pain Integumentary Denies rash or wounds Neurologic Neurologic: Denies headache(s), paresthesias or weakness EXAM Physical Exam Const Vital Signs: 09/02/22 10:27 09/02/22 10:29 09/02/22 10:29 Temperature 98.7 F 98.7 F Temperature Source Temporal Temporal Pulse Rate 92 92 Respiratory Rate 20 H 18 Respiratory Effort Normal Respiratory Pattern Blood Pressure 88/74 L 130/69 H Blood Pressure Mean 78 89 Pulse Ox 94 94 Oxygen Delivery Method Room Air Room Air Room Air Oxygen Flow Rate (L/min) 09/02/22 11:29 09/02/22 11:29 09/02/22 11:28 Temperature 98.7 F Temperature Source Temporal Pulse Rate 92 90 Respiratory Rate 18 18 Respiratory Effort Respiratory Pattern Normal Blood Pressure 130/69 H Blood Pressure Mean 89 Pulse Ox 94 Oxygen Delivery Method Room Air Nasal Cannula Oxygen Flow Rate (L/min) 2 09/02/22 13:59 09/02/22 14:00 09/02/22 14:00 Temperature 98.9 F 98.9 F Temperature Source Temporal Temporal Pulse Rate 85 85 Respiratory Rate 19 H 15 Respiratory Effort Respiratory Pattern Blood Pressure 115/88 H 115/85 H Blood Pressure Mean 97 95 Pulse Ox 92 95 93 Oxygen Delivery Method Nasal Cannula Nasal Cannula Nasal Cannula Oxygen Flow Rate (L/min) 3 3 Positive well nourished and well developed Constitutional Narrative: Patient on 3 L nasal cannula pulse ox fluctuating 88 to low 90s. No respiratory distress. General Appearance ED: well developed and NAD HEENT Reports moist mucous membranes normocephalic and atraumatic Eyes PERRL, EOMs intact bilaterally and conjunctivae normal General Eye ED: Yes normal appearance of both eyes Neck no lymphadenopathy and supple General: Negative for tenderness Chest Wall Chest: Negative for tenderness Resp Resp Narrative: Mild diminished breath sounds at the bases. Effort and Inspection: symmetric chest movement; Negative for respiratory distress Cardio regular rate, regular rhythm and no murmurs Peripheral Pulses: pulses 2+ throughout GI normal to inspection, nondistended, normoactive bowel sounds and non-tender Palpation: Negative for guarding or rebound tenderness present Back/Spine no CVA tenderness and no thoracic nor lumbar tenderness Extremity normal to inspection General Extremety ED: Negative for edema or tenderness General Extremity: Negative for edema Neuro oriented x3 and no sensory deficits noted Sensorium / Orientation: awake and alert Skin no rashes or lesions noted and no wounds MDM MDM MDM Narrative Medical decision making narrative: Patient presented 88% walking into her room. She is placed on oxygen. No respiratory distress diminished sounds at the bases. Had a transient low blood pressure 88 on arrival without fluids in the room systolic 130s. Patient to COVID test at home that were negative. Rechecked again also negative. Two-view chest x-ray reviewed by us and read by radiology noted concern interstitial opacities concerning for pneumonia versus pneumonitis. She has no productive sputum lower concerns for pneumonia. Her labs are stable white count 8.4. She aerosols and steroids were started with her asthma history. Clinically was feeling better. She is on Xarelto and being compliant therefore lower concerns for PE. She was ambulated off oxygen dropped down to 86% and was symptomatic. She is placed back on oxygen. I spoke with hospitalist Dr. Cooley for admission. We will send for flu and viral panels. We will treat as viral symptoms at this time and hold off on antibiotics. Lab Data Attestation: I reviewed the patient's lab results. Labs: Laboratory Results - last 24 hr 09/02/22 09/02/22 11:45 11:45 WBC 8.4 RBC 4.27 Hgb 12.0 Hct 36.5 L MCV 85.5 MCH 28.1 MCHC 32.9 RDW Std Deviation 59.6 H RDW Coeff of Yovanny 19.7 H Plt Count 362 MPV 9.3 Immature Gran % (Auto) 1.600 H Neut % (Auto) 69.0 Lymph % (Auto) 13.0 L [place] % (Auto) 13.2 H Eos % (Auto) 2.4 Baso % (Auto) 0.8 Absolute Neuts (auto) 5.8 Absolute Lymphs (auto) 1.09 Nucleated RBC % 0 Sodium 136 Potassium 4.0 Chloride 102 Carbon Dioxide 26.0 Anion Gap 8 BUN 15 Creatinine 0.95 Estim Creat Clear Calc 44.55 Est GFR (MDRD) Af Amer 76 Est GFR (MDRD) Non-Af 62 BUN/Creatinine Ratio 15.7 Glucose 108 H Calcium 9.4 Radiography Diagnostic Testing: Clinical Impression(s) from Imaging Studies Chest X-Ray 09/02/22 12:04 IMPRESSION: Mild linear and interstitial opacities in the lungs concerning for pneumonia or pneumonitis. Electronically Signed: Haylee Smallwood MD at 12:21 EST Reading Location ID and State: [facility] / [place] Tel , Service support , EKG Initial EKG: Attestation: I personally reviewed and interpreted this EKG as follows: Comments: Sinus rate of 84, no ST changes, isolated T wave version leads III. Nonspecific. Discharge Plan Dx/Rx/DC Orders Clinical Impression: Hypoxia, Acute viral syndrome, Asthma exacerbation Disposition Disposition: [facility]
[2022-09-02] MEDS: Ipratropium/Albuterol Sulfate 3 ML AMPUL.NEB INHALATION (11:28)
[2022-09-02] MEDS: MethylPREDNISolone 125 MG/2 ML Vial IV (12:00)
--- NOTE | 2022-09-02 12:04 | RAD_ITS ---
HISTORY: cough. TECHNIQUE: XR Chest 2 Views. COMPARISON: 05/15/2022. FINDINGS: CARDIOMEDIASTINAL BORDERS: Cardiac silhouette within normal limits in size. Mediastinal contour unremarkable with calcification of the aorta. LUNGS: Mild interstitial and linear opacities scattered in the left lung and in the right lung base. PLEURA: No pleural effusion or pneumothorax seen. OTHER: Degenerative changes of the osseous structures. Right upper quadrant surgical clips. IVC filter noted in the abdomen. RAD/Chest PA and Lateral IMPRESSION: Mild linear and interstitial opacities in the lungs concerning for pneumonia or pneumonitis. Electronically Signed: Haylee Smallwood MD at 12:21 EST ,
[2022-09-02 12:07] LABS: Anion Gap 8 (5-15); BUN 15 mg/dL (7-18); BUN/Creat Ratio 15.7 RATIO (10-20); Calcium,Total 9.4 mg/dL (8.5-10.1); Chloride 102 mmol/L (98-107); Creatinine, Serum 0.95 mg/dL (0.55-1.02); EST Glomerular Filtration Rate 62 mL/min (>60); Est Glom Filt Rate - Afr Amer 76 mL/min (>60); Estimated Creatinine Clearance 44.55 ml/min; Glucose 108 mg/dL (74-106); Sodium Level 136 mmol/L (136-145)
[2022-09-02 12:37] LABS: Absolute Lymphocyte Count 1.09 X10^3/uL (0.83-4.51); Absolute Neutrophil Count 5.8 X10^3/uL (2.0-7.7); Basophil# 0.07 X10^3/uL; Basophil% 0.8 % (0-1); Eosinophils% 2.4 % (0-5); Hematocrit 36.5 % (37-47); Lymphocyte # 1.09 X10^3/ul (0.83-4.51); Mean Corp Hgb Conc 32.9 g/dL (32-36); Mean Corpuscular Hgb 28.1 pg (27.0-32.0); Mean Corpuscular Volume 85.5 fL (81-99); Mean Platelet Vol. 9.3 fl (6.2-12.0); Monocyte# 1.11 X10^3/uL; Monocyte% 13.2 % (0-10); NRBC Flagged by Analyzer 0 % (0-5); Neutrophil # 5.78 X10^3/uL (2.7-7.7); Platelet Count 362 K/mm3 (150-450); RBC Distribution Width CV 19.7 % (11.6-14.6); RBC Distribution Width SD 59.6 fl (35.1-43.9); Red Blood Count 4.27 M/mm3 (4.2-5.4); White Blood Count 8.4 K/mm3 (4.4-11.0)
--- NOTE | 2022-09-02 13:30 | NURSING ---
DR NÉSTOR [place]
--- NOTE | 2022-09-02 14:00 | NURSING ---
med surg [facility] hypoxia, asthma exac, viral syndrome
--- NOTE | 2022-09-02 14:10 | PCM.HP.STD ---
[facility] - General General Date of Admission: 09/02/22 Date of Service: 09/02/22 Chief Complaint: shortness of breath. HPI Narrative JP MASSEY, is a 67 F who presents with shortness of breath and dyspnea on exertion. Patient became sick about a week ago and had noticed dyspnea on exertion when going up stairs in her home. Symptoms had not gotten any better. Presented to her PCPs office and was found to be hypoxic with a pulse ox of 82% and was sent to the emergency room. Patient had chest x-ray that was concerning for pneumonitis the patient did receive methylprednisolone as well as bronchodilators. I tried to ambulate her as patient really wanted to leave and was still dropping out 86% on room air with short ambulation. The hospital service was contacted for admission. Patient denies any prior history of any lung disease. She not have any fever or chills. He has having a dry nonproductive cough. She has not had symptoms like this previously. 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 Osteoarthritis Raynauds disease Sjogrens syndrome SVT (supraventricular tachycardia) Thyroiditis Varicose veins of both lower extremities Home Medications diltiazem HCl 240 mg capsule,extended release 24 hr 240 mg PO DAILY 07/06/13 [History Last Taken 07/17/13 08:00] fluticasone propionate 50 mcg/actuation nasal spray,suspension 2 sprays NARES DAILY 07/06/13 [History Last Taken Unknown] folic acid 1 mg tablet 2 mg PO DAILY@0800 07/06/13 [History Last Taken Unknown] methotrexate sodium 2.5 mg tablet 20 mg PO SA 07/06/13 [History Last Taken Unknown] pantoprazole 40 mg tablet,delayed release 40 mg PO DAILY 09/17/20 [History Last Taken Unknown] rivaroxaban 20 mg tablet 20 mg PO DAILY 09/17/20 [History Last Taken Unknown] cyclosporine 0.05 % eye drops in a dropperette (Restasis) 1 drp ophthalmic (eye) Q12H 10/10/20 [History Last Taken Unknown] bupropion HCl 300 mg 24 hr tablet, extended release tablet PO 12/15/21 [History Last Taken Unknown] potassium chloride 20 mEq tablet,extended release(part/cryst) tablet PO 12/15/21 [History Last Taken Unknown] etanercept 50 mg/mL (1 mL) subcutaneous syringe (Enbrel) 50 mg subcut QWEEK 06/03/22 [History Last Taken Unknown] hydrochlorothiazide 25 mg tablet 25 mg PO DAILY 06/03/22 [History Last Taken Unknown] valsartan 160 mg tablet 160 mg PO DAILY 06/03/22 [History Last Taken Unknown] acetaminophen 500 mg tablet 500 mg PO Q6H PRN Pain 09/02/22 [History Last Taken 09/01/22] ascorbic acid (vitamin C) 1,000 mg tablet (Vitamin C) 1,000 mg PO BID SUPPLEMENT 09/02/22 [History Last Taken 09/02/22] calcium citrate 1,000 mg PO/SL BID SUPPLEMENT 09/02/22 [History Last Taken 09/02/22] cyanocobalamin (vitamin B-12) 1,000 mcg tablet (Vitamin B-12) 1,000 mcg PO QPM SUPPLEMENT 09/02/22 [History Last Taken 09/01/22] magnesium oxide 400 mg PO QPM SUPPLEMENT 09/02/22 [History Last Taken 09/01/22] plecanatide 3 mg tablet (Trulance) 3 mg PO DAILY IBS 09/02/22 [History Last Taken 09/02/22] tramadol 50 mg tablet 50 mg PO TID PRN RHEUMATOID ARTHRITIS 09/02/22 [History Last Taken Unknown] zinc acetate 50 mg (zinc) capsule 50 mg PO QPM SUPPLEMENT 09/02/22 [History Last Taken 09/01/22] Allergy/AdvReac Type Severity Reaction Status Date / Time No Known Allergies Allergy Verified 09/02/22 10:29 Family History Father Presence of permanent cardiac pacemaker Atrial fibrillation Grandmother Diabetes Mother CVA (cerebral vascular accident) Myocardial infarction Atrial fibrillation Hypertension Sister Presence of permanent cardiac pacemaker Surgical History History of bilateral carpal tunnel release History of cholecystectomy History of colonoscopy (~2020) History of elbow surgery History of embolic filter insertion History of esophagogastroduodenoscopy (EGD) (~2020) History of hysterectomy History of left breast biopsy History of total bilateral knee replacement History of varicose vein stripping Hx of fasciotomy Status post insertion of iliac artery stent Social History Smoking Status: Never smoker alcohol intake: never substance use type: does not use caffeine: Yes Type: carbonated beverages Number of servings: 2 ROS DONELL Narrative 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 All review of systems were negative except as mentioned above in the history of present illness and the other review of systems. Vital Signs Vital Signs Vital Signs: 09/02/22 10:27 09/02/22 10:29 09/02/22 10:29 Temperature 37.1 C 37.1 C Temperature Source Temporal Temporal Pulse Rate 92 92 Respiratory Rate 20 H 18 Respiratory Effort Normal Respiratory Pattern Blood Pressure 88/74 L 130/69 H Blood Pressure Mean 78 89 Pulse Ox 94 94 Oxygen Delivery Method Room Air Room Air Room Air Oxygen Flow Rate (L/min) 09/02/22 11:29 09/02/22 11:29 09/02/22 11:28 Temperature 37.1 C Temperature Source Temporal Pulse Rate 92 90 Respiratory Rate 18 18 Respiratory Effort Respiratory Pattern Normal Blood Pressure 130/69 H Blood Pressure Mean 89 Pulse Ox 94 Oxygen Delivery Method Room Air Nasal Cannula Oxygen Flow Rate (L/min) 2 09/02/22 13:59 09/02/22 14:00 09/02/22 14:00 Temperature 37.2 C 37.2 C Temperature Source Temporal Temporal Pulse Rate 85 85 Respiratory Rate 19 H 15 Respiratory Effort Respiratory Pattern Blood Pressure 115/88 H 115/85 H Blood Pressure Mean 97 95 Pulse Ox 92 95 93 Oxygen Delivery Method Nasal Cannula Nasal Cannula Nasal Cannula Oxygen Flow Rate (L/min) 3 3 Weight Weight: 79.832 kg Body Mass Index (BMI) 33.2 Physical Exam Const alert and no apparent distress Constitutional Narrative: No respiratory distress. No conversational dyspnea. HEENT normocephalic and head/scalp atraumatic Eyes Eyes Narrative: No icterus Resp normal respiratory effort, no retractions, no use of accessory muscles and clear to auscultation bilaterally Cardio regular rate, regular rhythm, S1 normal heart sound and S2 normal heart sound GI normal to inspection, nondistended, normoactive bowel sounds, soft to palpation, non-tender and non-distended Extremity normal to inspection and no clubbing, cyanosis or edema Neuro oriented x3 Psych affect normal Results Lab / Micro Data Attestation: I reviewed the patient's lab results. Lab results narrative: Chest x-ray personally reviewed and showed no obvious infiltrate. Result Diagrams: 09/02/22 11:45 09/02/22 11:45 Labs: Laboratory Results - last 24 hr 09/02/22 11:45: WBC 8.4, RBC 4.27, Hgb 12.0, Hct 36.5 L, MCV 85.5, MCH 28.1, MCHC 32.9, RDW Std Deviation 59.6 H, RDW Coeff of Yovanny 19.7 H, Plt Count 362, MPV 9.3, Immature Gran % (Auto) 1.600 H, Neut % (Auto) 69.0, Lymph % (Auto) 13.0 L, [place] % (Auto) 13.2 H, Eos % (Auto) 2.4, Baso % (Auto) 0.8, Absolute Neuts (auto) 5.8, Absolute Lymphs (auto) 1.09, Nucleated RBC % 0 09/02/22 11:45: Sodium 136, Potassium 4.0, Chloride 102, Carbon Dioxide 26.0, Anion Gap 8, BUN 15, Creatinine 0.95, Estim Creat Clear Calc 44.55, Est GFR (MDRD) Af Amer 76, Est GFR (MDRD) Non-Af 62, BUN/Creatinine Ratio 15.7, Glucose 108 H, Calcium 9.4 Micro: Microbiology 09/02/22 11:50 Nasal Secretion SARS-CoV-2 Antigen (Rapid) - Final Radiology Impression Chest X-Ray 09/02/22 12:04 IMPRESSION: Mild linear and interstitial opacities in the lungs concerning for pneumonia or pneumonitis. Electronically Signed: Haylee Smallwood MD at 12:21 EST , Assessment & Plan Assessment/Plan (1) Bronchitis: PLAN: Suspect viral Patient checked twice for COVID as outpatient was negative x2 and was checked for COVID here and was negative. Follow-up flu and RSV swab Continue with steroids and will continue with prednisone 40 mg daily as well as albuterol. (2) Hypoxia: PLAN: Symptoms of, according the patient, are unchanged over the past week though she has been short of breath during this whole time. Likely related with bronchitis but cannot rule out other processes including pneumonia or other kind of chronic lung disease. Patient does have a history of VTE and is on rivaroxaban and has been compliant with that. Will check a CTA of the chest to see if she does have any evidence of pulmonary emboli, though to best evaluate for chronic PE a VQ scan would be most appropriate, but also to evaluate to if she has any pneumonitis, bronchiectasis etc. other possibilities could be methotrexate toxicity or rheumatoid lung. Wean oxygen as tolerated Check ambulatory pulse ox prior to discharge PLAN: Plan Chronic conditions Rheumatoid arthritis: makes patient more apt to infections or prolonged infections. Hold Enbrel and MTX. VTE: continue rivaroxaban. SVT: VTE prophylaxis: Not indicated as patient is already on anticoagulation Disposition: At this point in time please the patient under observation status as it is unclear if there is something more serious that warrants inpatient admission requirements such as IV antibiotics. If something is identified on CAT scan that would warrant that then her status could be changed over to admission. Charges/Coding Visit Charges OBSV E&M: 51763 Initial observation care L3
--- NOTE | 2022-09-02 14:40 | CT_ITS ---
HISTORY: hypoxic respiratory failure. TECHNIQUE: CT angiogram of the chest was performed after the intravenous administration of 100 mL Isovue-370. Post-processing of the angiographic images was performed with multiplanar reformation and 3D reconstruction. Individualized dose optimization techniques were used for this CT. 1055 images. COMPARISON: XRT same day, CT 8 09/17/2020. FINDINGS: CENTRAL AIRWAYS: Patent. LUNGS: Moderate bilateral groundglass opacities with mild septal thickening. Mild linear lower lobe atelectasis. 6 mm noncalcified left lower lobe nodule laterally, previously 3 mm. PLEURA: No pneumothorax or significant pleural effusion. HEART/PERICARDIUM: Heart within normal limits in size. No pericardial effusion. PULMONARY ARTERIES: No filling defect. AORTA/VESSELS: No thoracic aortic aneurysm or dissection flap. Mild atherosclerosis. MEDIASTINUM/RAE: No pathologically enlarged lymph nodes. OSSEOUS STRUCTURES: Degenerative change. UPPER ABDOMEN: Mild hiatal hernia. Hepatic and left renal cysts. CT/CTA Chest W/WO Contrast IMPRESSION: Suspicious 6 mm left lower lobe pulmonary nodule, increased in size from prior. Recommend 3 month follow-up. Moderate groundglass opacities with septal thickening, concerning for atypical infection, viral pneumonia, or pneumonitis. No evidence of pulmonary embolism. Electronically Signed: Haylee Smallwood MD at 15:32 EST ,
--- NOTE | 2022-09-02 15:54 | NURSING ---
pt up to br and on ra. when came back requested to check pox and was only 72% on ra. pt back on 4l nc. will get either portable tank for pt or other option is bsc for . will be made aware that could not do ra again d/t severe desat and hypoxia.
[2022-09-02] MEDS: Rivaroxaban 20 MG Tablet PO (17:02)
--- NOTE | 2022-09-02 19:00 | NURSING ---
Emergency Documentation
[2022-09-03] VITALS (9 sets, daily range): BP systolic 103–127; BP diastolic 49–72; PULSE 67–73; RESP 16–18; TEMP 36.3–37; O2SAT 92–97
[2022-09-03] MEDS: MethylPREDNISolone 125 MG/2 ML Vial 60 MG IV ×4 (00:38→17:27)
[2022-09-03] MEDS: 0.9% Saline Lock 10 ML Syringe IV (05:11)
[2022-09-03 05:35] LABS: Absolute Lymphocyte Count 1.11 X10^3/uL (0.83-4.51); Absolute Neutrophil Count 10.1 X10^3/uL (2.0-7.7); Basophil# 0.01 X10^3/uL; Basophil% 0.1 % (0-1); Hematocrit 37.3 % (37-47); Hemoglobin 12.3 g/dL (12.0-15.0); Lymphocyte # 1.11 X10^3/ul (0.83-4.51); Lymphocyte % 9.5 % (19-41); Mean Corpuscular Hgb 28.8 pg (27.0-32.0); Mean Corpuscular Volume 87.4 fL (81-99); Monocyte# 0.35 X10^3/uL; NRBC Flagged by Analyzer 0 % (0-5); Neutrophil # 10.14 X10^3/uL (2.7-7.7); Neutrophil % 86.6 % (47-70); Platelet Count 420 K/mm3 (150-450); RBC Distribution Width CV 19.5 % (11.6-14.6); RBC Distribution Width SD 61.2 fl (35.1-43.9); Red Blood Count 4.27 M/mm3 (4.2-5.4); White Blood Count 11.7 K/mm3 (4.4-11.0)
[2022-09-03] MEDS: Albuterol 2.5 MG/3 ML VIAL.NEB. INHALATION (05:35)
[2022-09-03 06:07] LABS: ALB/GLOB Ratio 0.7 RATIO (0.9-2.4); AST(SGOT) 22 U/L (15-37); Alanine Aminotransfer ALT/SGPT 33 U/L (13-56); Albumin, Serum 2.9 g/dL (3.2-5.0); Alkaline Phosphatase 70 U/L (45-117); Anion Gap 10 (5-15); BUN 21 mg/dL (7-18); BUN/Creat Ratio 19.6 RATIO (10-20); Calcium,Total 9.3 mg/dL (8.5-10.1); Chloride 100 mmol/L (98-107); Creatinine, Serum 1.07 mg/dL (0.55-1.02); EST Glomerular Filtration Rate 55 mL/min (>60); Est Glom Filt Rate - Afr Amer 66 mL/min (>60); Estimated Creatinine Clearance 39.55 ml/min; Globulin 4.3 g/dL (2.2-4.2); Glucose 153 mg/dL (74-106); Potassium 3.2 mmol/L (3.5-5.1); Protein, Total 7.2 g/dL (6.4-8.2); Sodium Level 135 mmol/L (136-145)
[2022-09-03] MEDS: Folic Acid 1 MG Tablet 2 MG PO (08:10)
[2022-09-03] MEDS: Losartan Potassium 50 MG Tablet PO (08:10)
[2022-09-03] MEDS: Fluticasone 0.05% 1 SPRAY NASAL.SRY 2 SPRAY NASAL (08:10)
[2022-09-03] MEDS: Pantoprazole Sodium 40 MG Tablet PO (08:10)
[2022-09-03] MEDS: dilTIAZem CD 240 MG Capsule PO (08:10)
[2022-09-03] MEDS: hydroCHLOROthiazide 25 MG Tablet PO (08:10)
--- NOTE | 2022-09-03 08:38 | PN.HOSP_ITS ---
Subjective Subjective Follow up for shortness of breath, hypoxia and CT chest finding of bilateral groundglass opacity, pneumonitis. Objective Data Objective Data Vital Signs: Vital Signs Temp Pulse Resp BP Pulse Ox O2 Del Method O2 Flow Rate 97.4 F L 68 18 119/72 96 Nasal Cannula 3 09/03/22 02:20 09/03/22 05:35 09/03/22 05:35 09/03/22 02:20 09/03/22 07:47 09/03/22 07:47 09/03/22 07:47 Oxygen Flow Rate (L/min) 3 Oxygen Delivery Method Nasal Cannula Weight: 181 lb 6.4 oz Body Mass Index (BMI) 34.2 Intake & Output: Intake and Output for Last 24 Hours 09/01/22 09/02/22 09/03/22 23:59 23:59 23:59 Intake Total 300 / 540 490 / 490 Balance 300 / 540 490 / 490 Lab / Micro Data Result Diagrams: 09/03/22 04:51 09/03/22 04:51 Labs: Laboratory Results - last 24 hr 09/02/22 11:45: WBC 8.4, RBC 4.27, Hgb 12.0, Hct 36.5 L, MCV 85.5, MCH 28.1, MCHC 32.9, RDW Std Deviation 59.6 H, RDW Coeff of Yovanny 19.7 H, Plt Count 362, MPV 9.3, Immature Gran % (Auto) 1.600 H, Neut % (Auto) 69.0, Lymph % (Auto) 13.0 L, [place] % (Auto) 13.2 H, Eos % (Auto) 2.4, Baso % (Auto) 0.8, Absolute Neuts (auto) 5.8, Absolute Lymphs (auto) 1.09, Nucleated RBC % 0 09/02/22 11:45: Sodium 136, Potassium 4.0, Chloride 102, Carbon Dioxide 26.0, Anion Gap 8, BUN 15, Creatinine 0.95, Estim Creat Clear Calc 44.55, Est GFR (MDRD) Af Amer 76, Est GFR (MDRD) Non-Af 62, BUN/Creatinine Ratio 15.7, Glucose 108 H, Calcium 9.4 09/03/22 04:51: WBC 11.7 H, RBC 4.27, Hgb 12.3, Hct 37.3, MCV 87.4, MCH 28.8, MCHC 33.0, RDW Std Deviation 61.2 H, RDW Coeff of Yovanny 19.5 H, Plt Count 420, MPV 9.0, Immature Gran % (Auto) 0.800, Neut % (Auto) 86.6 H, Lymph % (Auto) 9.5 L, [place] % (Auto) 3.0, Eos % (Auto) 0.0, Baso % (Auto) 0.1, Absolute Neuts (auto) 10.1 H, Absolute Lymphs (auto) 1.11, Nucleated RBC % 0 09/03/22 04:51: Sodium 135 L, Potassium 3.2 L, Chloride 100, Carbon Dioxide 25.0, Anion Gap 10, BUN 21 H, Creatinine 1.07 H, Estim Creat Clear Calc 39.55, Est GFR (MDRD) Af Amer 66, Est GFR (MDRD) Non-Af 55 L, BUN/Creatinine Ratio 19.6, Glucose 153 H, Calcium 9.3, Total Bilirubin 0.50, AST 22, ALT 33, Alkaline Phosphatase 70, Total Protein 7.2, Albumin 2.9 L, Globulin 4.3 H, Albumin/Globulin Ratio 0.7 L Micro: Microbiology 09/02/22 14:07 Mucosa - Nasopharyngeal - Final 09/02/22 11:50 Nasal Secretion SARS-CoV-2 Antigen (Rapid) - Final Radiography Diagnostic Testing: Radiology Impression Chest X-Ray 09/02/22 12:04 IMPRESSION: Mild linear and interstitial opacities in the lungs concerning for pneumonia or pneumonitis. Electronically Signed: Haylee Smallwood MD at 12:21 EST , Chest CTA 09/02/22 14:40 IMPRESSION: Suspicious 6 mm left lower lobe pulmonary nodule, increased in size from prior. Recommend 3 month follow-up. Moderate groundglass opacities with septal thickening, concerning for atypical infection, viral pneumonia, or pneumonitis. No evidence of pulmonary embolism. Physical Exam Narrative Seen and examined. Shortness of breath better. In the morning she was little bit wheezing and cough but has improved by afternoon. Physical exam General: Alert, Oriented x3, Cooperative HEENT: Atraumatic, PERRLA, EOMI, Normocephalic Oral: Oral mucosa moist no Gingival or Mucosal Lesions/ Ulcerations Neck: Supple, No JVD, Negative Carotid Bruits Lungs: Air entry bilateral equal. No coarse crepitation rhonchi or wheezing. Mild hypoxia. No tachypnea Cardiovascular: Regular rate, Regular Rhythm, Normal S1, Normal S2, No murmurs Abdomen: Bowel Sounds Present, Soft, Non Tender, Non-Distended : No renal angle tenderness. No suprapubic tenderness. Extremities: No edema, Capillary Refill Less than 3 Seconds Skin: No rashes, No breakdown Musculoskeletal: No Tenderness to Palpation of Joints or Extremities Neurological: Cranial nerves II-XII grossly intact, DTR 2+/4 and Symmetrical, Neuro grossly intact Psych/Mental Status: Normal Affect, Appropriate. Assessment & Plan Assessment/Plan (1) Bronchitis: PLAN: This is a 67-year-old female was sent to ED by PCP for mild cough, dyspnea on exertion going up stairs, wheezing, hypoxia pulse ox 82% on room air, low-grade fever started 6 days ago. Patient has history of asthma but no tobacco/smoking history. History of RLE DVT on Xarelto CTA chest image reviewed does not show pulmonary embolism but groundglass opac ity. Suggestive of pneumonitis. Possible etiologies may be atypical infection like viral, methotrexate toxicity or rheumatoid lung COVID test outpatient twice negative and in ED also negative.Flu and RSV molecular test negative. Bilateral pneumonitis, exact etiology unclear: Patient is on DuoNeb, Solu-Medrol 60 mg every 6 hourly, and incentive spirometry. Mild hypokalemia: Potassium is getting replaced. Microbiology Past 72 Hours 09/02/22 14:07 Mucosa - Nasopharyngeal - Final 09/02/22 11:50 Nasal Secretion SARS-CoV-2 Antigen (Rapid) - Final Laboratory Results 09/02/22 11:45: WBC 8.4, RBC 4.27, Hgb 12.0, Hct 36.5 L, MCV 85.5, MCH 28.1, MCHC 32.9, RDW Std Deviation 59.6 H, RDW Coeff of Yovanny 19.7 H, Plt Count 362, MPV 9.3, Immature Gran % (Auto) 1.600 H, Neut % (Auto) 69.0, Lymph % (Auto) 13.0 L, [place] % (Auto) 13.2 H, Eos % (Auto) 2.4, Baso % (Auto) 0.8, Absolute Neuts (auto) 5.8, Absolute Lymphs (auto) 1.09, Nucleated RBC % 0 09/02/22 11:45: Sodium 136, Potassium 4.0, Chloride 102, Carbon Dioxide 26.0, Anion Gap 8, BUN 15, Creatinine 0.95, Estim Creat Clear Calc 44.55, Est GFR (MDRD) Af Amer 76, Est GFR (MDRD) Non-Af 62, BUN/Creatinine Ratio 15.7, Glucose 108 H, Calcium 9.4 09/03/22 04:51: WBC 11.7 H, RBC 4.27, Hgb 12.3, Hct 37.3, MCV 87.4, MCH 28.8, MCHC 33.0, RDW Std Deviation 61.2 H, RDW Coeff of Yovanny 19.5 H, Plt Count 420, MPV 9.0, Immature Gran % (Auto) 0.800, Neut % (Auto) 86.6 H, Lymph % (Auto) 9.5 L, [place] % (Auto) 3.0, Eos % (Auto) 0.0, Baso % (Auto) 0.1, Absolute Neuts (auto) 10.1 H, Absolute Lymphs (auto) 1.11, Nucleated RBC % 0 09/03/22 04:51: Sodium 135 L, Potassium 3.2 L, Chloride 100, Carbon Dioxide 25.0, Anion Gap 10, BUN 21 H, Creatinine 1.07 H, Estim Creat Clear Calc 39.55, Est GFR (MDRD) Af Amer 66, Est GFR (MDRD) Non-Af 55 L, BUN/Creatinine Ratio 19.6, Glucose 153 H, Calcium 9.3, Total Bilirubin 0.50, AST 22, ALT 33, Alkaline Phosphatase 70, Total Protein 7.2, Albumin 2.9 L, Globulin 4.3 H, Albumin/Globulin Ratio 0.7 L (2) Hypoxia: PLAN: Plan Chronic conditions * Rheumatoid arthritis: makes patient more apt to infections or prolonged infections. Hold Enbrel and MTX. * VTE: continue rivaroxaban. * SVT: Patient on Cardizem CD 240 mg daily. * Hypertension: Patient on losartan and HCTZ. * IBS: Patient on plecanatide for IBS with constipation, c-GMP agonist VTE prophylaxis: Not indicated as patient is already on anticoagulation Disposition: Charges/Coding Visit Charges OBSV E&M: 40015 Subsequent observation care L2
[2022-09-03] MEDS: Potassium Chloride Oral Tablet 20 MEQ 40 MEQ PO ×2 (09:58→13:01)
--- NOTE | 2022-09-03 15:59 | CASEMGMT ---
GAMALIEL MYERS in to discuss LAMBERT form with patient. GAMALIEL MYERS explained LAMBERT form, patient voiced understanding. Pt signed form and filed in chart. Pt provided with a copy of signed LAMBERT form. Pt walking around in room, just had shower and dressed in her clothes. Pt has a pox at home and is wearing currently monitoring her pox. Pt denies any need for services at home. On RA currently. Patient had no further questions or concerns at this time.
[2022-09-03] MEDS: Rivaroxaban 20 MG Tablet PO (16:21)
[2022-09-03] MEDS: PLECANATIDE 3 MG TABLET PO (17:44)
[2022-09-04] VITALS (7 sets, daily range): BP systolic 104–121; BP diastolic 52–68; PULSE 71–76; RESP 17–18; TEMP 36.7–37; O2SAT 92–96
[2022-09-04] MEDS: 0.9% Saline Lock 10 ML Syringe IV ×2 (00:21→12:00)
[2022-09-04] MEDS: MethylPREDNISolone 125 MG/2 ML Vial 60 MG IV ×3 (00:21→11:51)
[2022-09-04] MEDS: Ipratropium/Albuterol Sulfate 3 ML AMPUL.NEB INHALATION (00:53)
[2022-09-04] MEDS: Folic Acid 1 MG Tablet 2 MG PO (09:23)
[2022-09-04] MEDS: Fluticasone 0.05% 1 SPRAY NASAL.SRY 2 SPRAY NASAL (09:24)
[2022-09-04] MEDS: dilTIAZem CD 240 MG Capsule PO (09:24)
[2022-09-04] MEDS: PLECANATIDE 3 MG TABLET PO (09:25)
[2022-09-04] MEDS: Pantoprazole Sodium 40 MG Tablet PO (09:25)
--- NOTE | 2022-09-04 09:30 | DCINST_ITS ---
Discharge Instructions Diet Discharge Diet: No restrictions Activity Discharge Activity: Return to Normal Activity Weight Bearing Status: Weight bearing as tolerated Dressing / Incision Call your doctor if you observe: Fever of 101 or Higher, Coldness, Increased Pain, Numbness or Tingling, Change in Color, Inability to urinate, Inability to have a bowel movement, Using more than 1 pad per hour, Shortness of breath, Dizziness, Fainting spells, Swelling in the ankles, Chest pain, Prolonged hiccupping, Increased palpitations (irregular heartbeat), Calf discomfort and Uncontrolled pain Follow Up Care Test Results: Test results from this visit will be discussed in further detail at your follow- up appointment, if applicable. Discharge Plan Admission Admit Date/Time: 09/02/22 14:03 Primary Reason for Your Visit: B/L Pneumonitis Attending Provider: Sherif Zaman Primary Care Provider: Moira Avalos Consulting Providers: Dontrell Cooley Discharge Orders/Prescriptions Prescriptions: New prednisone 20 mg tablet See Taper PO DAILY Qty: 24 0RF Taper: Prednisone Taper 60 mg WITH BREAKFAST for 3 Days and 0 Hour 40 mg WITH BREAKFAST for 3 Days and 0 Hour 30 mg WITH BREAKFAST for 3 Days and 0 Hour 20 mg WITH BREAKFAST for 3 Days and 0 Hour 10 mg WITH BREAKFAST for 3 Days and 0 Hour Rx Instructions: 60 mg with for 3 Days; 40 mg with for 3 Days; 30 mg for 3 Days; 20 mg for 3 Days; 10 mg for 3 Days albuterol sulfate [ProAir HFA] 90 mcg/actuation HFA aerosol inhaler 2 inh inhalation Q6H PRN (Reason: shortness of breath or wheezing) Qty: 6.7 0RF Continued Restasis 0.05 % dropperette 1 drp OPHTHALMIC BID bupropion HCl 300 mg tablet extended release 24 hr 1 tablet PO DAILY valsartan 160 mg tablet 160 mg PO DAILY hydrochlorothiazide 25 mg tablet 25 mg PO DAILY diltiazem HCl 240 MG capsule 240 mg PO DAILY folic acid 1 MG tablet 2 mg PO QHS fluticasone propionate 1 SPRAY spray,suspension 2 sprays intranasal DAILY pantoprazole 40 MG tablet 40 mg PO DAILY Xarelto 20 MG tablet 20 mg PO QHS ascorbic acid (vitamin C) [Vitamin C] 1,000 mg Tablet 1,000 mg PO BID zinc acetate 50 mg (zinc) Capsule 50 mg PO QPM cyanocobalamin (vitamin B-12) [Vitamin B-12] 1,000 mcg Tablet 1,000 mcg PO QPM tramadol 50 mg tablet 50 mg PO TID PRN (Reason: RHEUMATOID ARTHRITIS) acetaminophen 500 mg Tablet 500 mg PO Q6H PRN (Reason: Pain) Trulance 3 mg tablet 3 mg PO DAILY magnesium oxide 400 mg magnesium Tablet 400 mg PO QPM calcium citrate 500 MG tablet 1,000 mg PO/SL BID Changed potassium chloride 20 mEq tablet,ER particles/crystals 2 tablet PO QPM Qty: 60 0RF Rx Instructions: Take 2 tablets, 40 M EQ for 5 days and then follow-up with BMP and titrate accordingly Held Enbrel 50 mg/mL (1 mL) syringe 50 mg subcut MO Hold Instructions: Resume on 09/04/22. Hold it until she talks with barber shop operator and anesthesiologist assistant methotrexate sodium 2.5 MG tablet 20 mg PO SA Hold Instructions: Hold it until she talks with barber shop operator and rh eumatologist Referrals / Follow Up: Moira Avalos MD [Primary Care Provider] - Within 1 Week Channing Soni MD [Med Staff - Active Staff] - Within 1 Week Disposition Disposition (needs filled in before D/C Order can be placed): Home, Self Care
--- NOTE | 2022-09-04 11:41 | PCM.DC.SUM ---
Providers Date of Admission: 09/02/22 Date of Discharge: 09/04/22 Primary Care Physician: Dr. Moira Avalos MD Reason For Visit: HYPOXIA Diagnosis Discharge Diagnosis (1) Bronchitis: Status: Acute Code(s): J40 - Bronchitis, not specified as acute or chronic Plan: This is a 67-year-old female was sent to ED by PCP for mild cough, dyspnea on exertion going up stairs, wheezing, hypoxia pulse ox 82% on room air, low-grade fever started 6 days ago. Patient has history of asthma but no tobacco/smoking history. History of RLE DVT on Xarelto CTA chest image reviewed does not show pulmonary embolism but groundglass opacity. Suggestive of pneumonitis. Possible etiologies may be atypical infection like viral, methotrexate toxicity or rheumatoid lung COVID test outpatient twice negative and in ED also negative.Flu and RSV molecular test negative. Bilateral pneumonitis, exact etiology unclear: Patient is on DuoNeb, Solu-Medrol 60 mg every 6 hourly, and incentive spirometry. 09/04: Mild hypokalemia: Potassium is getting replaced. Potassium was replaced. Increase potassium supplement 40 M EQ for 5 days and then check BMP and titrate the dose accordingly. Hypokalemia due to diuretics Plan Chronic conditions Rheumatoid arthritis: makes patient more apt to infections or prolonged infections. Hold Enbrel and MTX. 09/04: Advised to hold Enbrel and methotrexate until she follows director global market research and abrasive water jet cutter operator. I told her that she has having toxic effect of methotrexate therefore needs to be discontinued. VTE: continue rivaroxaban. SVT: Patient on Cardizem CD 240 mg daily. Hypertension: Patient on losartan and HCTZ. IBS: Patient on plecanatide for IBS with constipation, c-GMP agonist VTE prophylaxis: Not indicated as patient is already on anticoagulation Discharge medication reconciliation done. Discharge follow-up instructions completed. Discharge process discussed with the patient and all questions were answered to patient's satisfaction. Total time spent, exact 35 minutes on discharge meds reconciliation, examination, coordination of care with nurses and ancillary staff, review of imaging and blood test and discussion with the patient on follow-up instructions. Medications at Discharge Home Medications diltiazem HCl 240 mg capsule,extended release 24 hr 240 mg PO DAILY BLOOD PRESSURE 07/06/13 fluticasone propionate 50 mcg/actuation nasal spray,suspension 2 sprays intranasal DAILY ALLERGIES 07/06/13 folic acid 1 mg tablet 2 mg PO QHS SUPPLEMENT 07/06/13 methotrexate sodium 2.5 mg tablet 20 mg PO SA RHEUMATOID ARTHRITIS 07/06/13 pantoprazole 40 mg tablet,delayed release 40 mg PO DAILY ACID REFLUX 09/17/20 rivaroxaban 20 mg tablet (Xarelto) 20 mg PO QHS BLOOD THINNER 09/17/20 cyclosporine 0.05 % eye drops in a dropperette (Restasis) 1 drp ophthalmic (eye) BID EYES 10/10/20 bupropion HCl 300 mg 24 hr tablet, extended release 1 tablet PO DAILY DEPRESSION 12/15/21 etanercept 50 mg/mL (1 mL) subcutaneous syringe (Enbrel) 50 mg subcut MO RHEUMATOID ARTHRITIS 06/03/22 hydrochlorothiazide 25 mg tablet 25 mg PO DAILY FLUID/BLOOD PRESSURE 06/03/22 valsartan 160 mg tablet 160 mg PO DAILY BLOOD PRESSURE 06/03/22 acetaminophen 500 mg tablet 500 mg PO Q6H PRN Pain 09/02/22 ascorbic acid (vitamin C) 1,000 mg tablet (Vitamin C) 1,000 mg PO BID SUPPLEMENT 09/02/22 calcium citrate 1,000 mg PO/SL BID SUPPLEMENT 09/02/22 cyanocobalamin (vitamin B-12) 1,000 mcg tablet (Vitamin B-12) 1,000 mcg PO QPM SUPPLEMENT 09/02/22 magnesium oxide 400 mg PO QPM SUPPLEMENT 09/02/22 plecanatide 3 mg tablet (Trulance) 3 mg PO DAILY IBS 09/02/22 tramadol 50 mg tablet 50 mg PO TID PRN RHEUMATOID ARTHRITIS 09/02/22 zinc acetate 50 mg (zinc) capsule 50 mg PO QPM SUPPLEMENT 09/02/22 albuterol sulfate 90 mcg/actuation aerosol inhaler (ProAir HFA) 2 inh inhalation Q6H PRN shortness of breath or wheezing #6.7 grams 09/04/22 potassium chloride 20 mEq tablet,extended release(part/cryst) 2 tablet PO QPM SUPPLEMENT #60 tabs 09/04/22 prednisone 20 mg tablet See Taper PO DAILY #24 tabs 09/04/22 Physical Exam Narrative Seen and examined. Shortness of breath better. Patient did not require oxygen even on ambulation. Home oxygen qualification test was done. Physical exam General: Alert, Oriented x3, Cooperative HEENT: Atraumatic, PERRLA, EOMI, Normocephalic Oral: Oral mucosa moist no Gingival or Mucosal Lesions/ Ulcerations Neck: Supple, No JVD, Negative Carotid Bruits Lungs: Air entry bilateral equal. No coarse crepitation rhonchi or wheezing. Hypoxia resolved. No tachypnea Cardiovascular: Regular rate, Regular Rhythm, Normal S1, Normal S2, No murmurs Abdomen: Bowel Sounds Present, Soft, Non Tender, Non-Distended : No renal angle tenderness. No suprapubic tenderness. Extremities: No edema, Capillary Refill Less than 3 Seconds Skin: No rashes, No breakdown Musculoskeletal: No Tenderness to Palpation of Joints or Extremities Neurological: Cranial nerves II-XII grossly intact, DTR 2+/4 and Symmetrical, Neuro grossly intact Psych/Mental Status: Normal Affect, Appropriate. Weight / BMI Weight Weight: 181 lb 6.4 oz Body Mass Index (BMI) 34.2 ABG / Lab / Microbiology Data Result Diagrams: 09/03/22 04:51 09/03/22 04:51 Microbiology: Microbiology 09/02/22 14:07 Mucosa - Nasopharyngeal - Final 09/02/22 11:50 Nasal Secretion SARS-CoV-2 Antigen (Rapid) - Final D/C Instructions Discharge Diet: No restrictions Weight Bearing Status: Weight bearing as tolerated Call your doctor if you observe: Fever of 101 or Higher, Coldness, Increased Pain, Numbness or Tingling, Change in Color, Inability to urinate, Inability to have a bowel movement, Using more than 1 pad per hour, Shortness of breath, Dizziness, Fainting spells, Swelling in the ankles, Chest pain, Prolonged hiccupping, Increased palpitations (irregular heartbeat), Calf discomfort and Uncontrolled pain Meaningful Use Info Meaningful Use Diagnoses (Choose all that apply): None applicable Discharge Plan Admission Admit Date/Time: 09/02/22 14:03 Primary Reason for Your Visit: B/L Pneumonitis Attending Provider: Sherif Zaman Primary Care Provider: Moira Avaols Consulting Providers: Dontrell Cooley Discharge Orders/Prescriptions Prescriptions: New prednisone 20 mg tablet See Taper PO DAILY Qty: 24 0RF Taper: Prednisone Taper 60 mg WITH BREAKFAST for 3 Days and 0 Hour 40 mg WITH BREAKFAST for 3 Days and 0 Hour 30 mg WITH BREAKFAST for 3 Days and 0 Hour 20 mg WITH BREAKFAST for 3 Days and 0 Hour 10 mg WITH BREAKFAST for 3 Days and 0 Hour Rx Instructions: 60 mg with for 3 Days; 40 mg with for 3 Days; 30 mg for 3 Days; 20 mg for 3 Days; 10 mg for 3 Days albuterol sulfate [ProAir HFA] 90 mcg/actuation HFA aerosol inhaler 2 inh inhalation Q6H PRN (Reason: shortness of breath or wheezing) Qty: 6.7 0RF Continued Restasis 0.05 % dropperette 1 drp OPHTHALMIC BID bupropion HCl 300 mg tablet extended release 24 hr 1 tablet PO DAILY valsartan 160 mg tablet 160 mg PO DAILY hydrochlorothiazide 25 mg tablet 25 mg PO DAILY diltiazem HCl 240 MG capsule 240 mg PO DAILY folic acid 1 MG tablet 2 mg PO QHS fluticasone propionate 1 SPRAY spray,suspension 2 sprays intranasal DAILY pantoprazole 40 MG tablet 40 mg PO DAILY Xarelto 20 MG tablet 20 mg PO QHS ascorbic acid (vitamin C) [Vitamin C] 1,000 mg Tablet 1,000 mg PO BID zinc acetate 50 mg (zinc) Capsule 50 mg PO QPM cyanocobalamin (vitamin B-12) [Vitamin B-12] 1,000 mcg Tablet 1,000 mcg PO QPM tramadol 50 mg tablet 50 mg PO TID PRN (Reason: RHEUMATOID ARTHRITIS) acetaminophen 500 mg Tablet 500 mg PO Q6H PRN (Reason: Pain) Trulance 3 mg tablet 3 mg PO DAILY magnesium oxide 400 mg magnesium Tablet 400 mg PO QPM calcium citrate 500 MG tablet 1,000 mg PO/SL BID Changed potassium chloride 20 mEq tablet,ER particles/crystals 2 tablet PO QPM Qty: 60 0RF Rx Instructions: Take 2 tablets, 40 M EQ for 5 days and then follow-up with BMP and titrate accordingly Held Enbrel 50 mg/mL (1 mL) syringe 50 mg subcut MO Hold Instructions: Resume on 09/04/22. Hold it until she talks with director global market research and abrasive water jet cutter operator methotrexate sodium 2.5 MG tablet 20 mg PO SA Hold Instructions: Hold it until she talks with director global market research and abrasive water jet cutter operator Referrals / Follow Up: Moira Avalos MD [Primary Care Provider] - Within 1 Week Channing Soni MD [Med Staff - Active Staff] - Within 1 Week Disposition Disposition (needs filled in before D/C Order can be placed): Home, Self Care Charges/Coding Visit Charges Inpatient E&M: 35369 Disch Hosp
[2022-09-04] MEDS: hydroCHLOROthiazide 25 MG Tablet PO (11:50)
[2022-09-04] MEDS: Losartan Potassium 50 MG Tablet PO (11:50)
--- NOTE | 2022-09-04 12:30 | CASEMGMT ---
Pt did not qualify for home oxygen. No dc needs.
== END 2022-09-04 12:22 | disposition home or self-care (01) ==
LOC: ED 13:51 → MS3 14:26
PROVIDERS: Emergency Provider Emergency Medicine; PCP Family Medicine; Visit Provider Internal Medicine
DX: J18.9 Pneumonia, unspecified organism (principal); M06.9 Rheumatoid arthritis, unspecified; I47.1 Supraventricular tachycardia; J20.9 Acute bronchitis, unspecified; I10 Essential (primary) hypertension; Z20.822 Contact with and (suspected) exposure to COVID-19; E87.6 Hypokalemia; K58.1 Irritable bowel syndrome with constipation; Z79.899 Other long term (current) drug therapy; Z79.01 Long term (current) use of anticoagulants; Z86.718 Personal history of other venous thrombosis and embolism; K21.9 Gastro-esophageal reflux disease without esophagitis; M19.90 Unspecified osteoarthritis, unspecified site; I73.00 Raynaud's syndrome without gangrene
CPT/HCPCS: 36415; 71046; 71275; 80048; 80053; 85025; 87632; 87811; 93005; 94640; 96374; 96376; 97802; 99218; 99285; Q9967; A4216; G0378

== ENCOUNTER → 2022-09-09 | Outpatient (CLI) | payer MEDICARE, BC, SELFPAY ==
[2022-09-09 13:05] LABS: ALB/GLOB Ratio 0.8 RATIO (0.9-2.4); AST(SGOT) 13 U/L (15-37); Alanine Aminotransfer ALT/SGPT 40 U/L (13-56); Albumin, Serum 2.9 g/dL (3.2-5.0); Alkaline Phosphatase 68 U/L (45-117); Anion Gap 7 (5-15); BUN 23 mg/dL (7-18); BUN/Creat Ratio 25.1 RATIO (10-20); Calcium,Total 9.9 mg/dL (8.5-10.1); Chloride 105 mmol/L (98-107); Creatinine, Serum 0.92 mg/dL (0.55-1.02); EST Glomerular Filtration Rate 65 mL/min (>60); Est Glom Filt Rate - Afr Amer 79 mL/min (>60); Globulin 3.6 g/dL (2.2-4.2); Glucose 99 mg/dL (74-106); Potassium 4.5 mmol/L (3.5-5.1); Protein, Total 6.5 g/dL (6.4-8.2); Sodium Level 139 mmol/L (136-145)
== END | disposition home or self-care (01) ==
LOC: MFPLAB 09:41
PROVIDERS: PCP Family Medicine; Referring Provider Family Medicine; Visit Provider Family Medicine
DX: I10 Essential (primary) hypertension (principal)
CPT/HCPCS: 36415; 80053

== ENCOUNTER → 2022-12-02 | Outpatient (CLI) | payer MEDICARE, BC, SELFPAY ==
--- NOTE | 2022-12-02 12:22 | US_ITS ---
STUDY: THYROID ULTRASOUND REASON FOR EXAM: Female, 67 years old. Nodule. TECHNIQUE: Ultrasound evaluation of the thyroid was performed with real-time and static jaimes-scale imaging. COMPARISON: November 14, 2021 FINDINGS: RIGHT LOBE: The right lobe of the thyroid gland measures 4.8 x 1.7 x 1.4 cm. There is a homogeneous echotexture. In the upper pole there is a 0.5 x 0.3 x 0.4 cm isoechoic nodule with hypoechoic rim. In the inferior pole there is a 0.5 x 0.3 x 0.4 cm ill-defined mildly hypoechoic nodule as well as a 0.6 x 0.5 x 0.7 cm hyperechoic nodule. Normal vascularity on Doppler imaging. LEFT LOBE: The left lobe of the thyroid gland measures 4.4 x 1.6 x 0.9 cm. There is a homogeneous echotexture. In the mid to lower thyroid there is a 0.6 x 0.3 x 0.6 cm simple cyst. Normal vascularity on Doppler imaging. ISTHMUS: The isthmus measures 0.3 cm. The regional lymph nodes are normal. US/Thyroid IMPRESSION: 1. Stable nodular densities in the right thyroid. The hypoechoic nodule in the lower pole of the right thyroid is considered moderately suspicious, TR 4 using TI-RADS categorization. No FNA or follow-up is necessary given the small size of the nodule. The remainder of the nodules in the right thyroid are considered mildly suspicious, TR 3 and do not require follow-up or FNA. 2. Stable left thyroid nodule. This is considered benign and does not require follow-up. Electronically Signed: Rick Pickens DO at 16:48 EDT ,
--- NOTE | 2022-12-02 12:23 | CT_ITS ---
INDICATION: Pulmonary nodule. EXAMINATION: CT CHEST WITHOUT CONTRAST - CT Chest W/O Contrast Injection TECHNIQUE: Helically acquired images were obtained of the chest. A radiation dose optimization technique was used for this scan. IV Contrast dosage and agent: None. COMPARISON: CTA of the chest, September 02, 2022. FINDINGS: LUNGS, PLEURA AND LARGE AIRWAYS: The lungs are hyperexpanded. There is a 4 mm soft tissue nodule in left lower lobe (image 127 of series 5) which previously measures 6 mm in diameter. There is no new mass or infiltrate. No pneumothorax. THYROID: No thyroid lesions. HEART AND PERICARDIUM: Heart size is normal. No pericardial effusion. CORONARY ARTERIES: Coronary artery calcification is not seen. VESSELS: Atherosclerotic changes of the aortic arch. There is no aneurysm. Normal pulmonary arteries. MEDIASTINUM AND RAE: Stable nonspecific mediastinal lymphadenopathy. Normal rae. Esophagus is unremarkable. Small hiatal hernia. UPPER ABDOMEN: Stable cyst in segment 2 liver. There is evidence of cholecystectomy. BONES: Degenerative changes of the thoracic spine unchanged from prior exam. CT/Chest without Contrast IMPRESSION: 1. Decrease in size of left lower lobe pulmonary nodule compared to examination Fleischner Society Guidelines for low-risk patients, no follow-up is necessary. For high-risk patients (smoking history or other known risk factors) an optional chest CT at 12 months could be performed. 2. Otherwise stable findings. Electronically Signed: Rick Pickens DO at 16:59 EDT Reading Location ID and State: [address] [place] [address] Tel [phone], Service support ,
[2022-12-02 12:37] LABS: Erythrocyte Sedimentation Rate 6 mm/hr (0-30)
[2022-12-02 12:39] LABS: Absolute Lymphocyte Count 2.36 X10^3/uL (0.83-4.51); Absolute Neutrophil Count 7.5 X10^3/uL (2.0-7.7); Basophil# 0.11 X10^3/uL; Eosinophil# 0.16 X10^3/uL; Eosinophils% 1.4 % (0-5); Lymphocyte # 2.36 X10^3/ul (0.83-4.51); Mean Corpuscular Hgb 28.6 pg (27.0-32.0); Mean Corpuscular Volume 92.3 fL (81-99); Monocyte# 1.06 X10^3/uL; Monocyte% 9.4 % (0-10); NRBC Flagged by Analyzer 0 % (0-5); Neutrophil % 66.8 % (47-70); Platelet Count 430 K/mm3 (150-450); RBC Distribution Width CV 15.2 % (11.6-14.6); Red Blood Count 4.55 M/mm3 (4.2-5.4); White Blood Count 11.2 K/mm3 (4.4-11.0)
[2022-12-02 13:19] LABS: ALB/GLOB Ratio 1.1 RATIO (0.9-2.4); AST(SGOT) 29 U/L (15-37); Alanine Aminotransfer ALT/SGPT 41 U/L (13-56); Albumin, Serum 3.9 g/dL (3.2-5.0); Alkaline Phosphatase 65 U/L (45-117); Anion Gap 6 (5-15); BUN 25 mg/dL (7-18); BUN/Creat Ratio 25.8 RATIO (10-20); CRP < 2.90 mg/L (0.0-3.0); Calcium,Total 9.9 mg/dL (8.5-10.1); Chloride 108 mmol/L (98-107); Creatinine, Serum 0.97 mg/dL (0.55-1.02); EST Glomerular Filtration Rate 61 mL/min (>60); Est Glom Filt Rate - Afr Amer 74 mL/min (>60); Globulin 3.6 g/dL (2.2-4.2); Glucose 105 mg/dL (74-106); Potassium 3.9 mmol/L (3.5-5.1); Protein, Total 7.5 g/dL (6.4-8.2); Sodium Level 142 mmol/L (136-145)
== END | disposition home or self-care (01) ==
PROVIDERS: Internal Medicine Rheumatology; PCP Family Medicine; Referring Provider Family Medicine; Visit Provider Family Medicine
DX: R06.00 Dyspnea, unspecified (principal); M06.00 Rheumatoid arthritis without rheumatoid factor, unspecified site; R91.1 Solitary pulmonary nodule; Z79.899 Other long term (current) drug therapy; E06.9 Thyroiditis, unspecified
CPT/HCPCS: 36415; 71250; 76536; 80053; 85025; 85652; 86140

== ENCOUNTER → 2023-01-18 | Outpatient (CLI) | payer MEDICARE, BC, SELFPAY ==
[2023-01-18 10:11] LABS: Absolute Lymphocyte Count 2.19 X10^3/uL (0.83-4.51); Absolute Neutrophil Count 5.3 X10^3/uL (2.0-7.7); Basophil# 0.07 X10^3/uL; Basophil% 0.8 % (0-1); Eosinophil# 0.24 X10^3/uL; Eosinophils% 2.7 % (0-5); Hematocrit 38.7 % (37-47); Hemoglobin 12.4 g/dL (12.0-15.0); Lymphocyte # 2.19 X10^3/ul (0.83-4.51); Lymphocyte % 25.1 % (19-41); Mean Corpuscular Hgb 27.7 pg (27.0-32.0); Mean Corpuscular Volume 86.6 fL (81-99); Mean Platelet Vol. 9.2 fl (6.2-12.0); Monocyte# 0.92 X10^3/uL; Monocyte% 10.5 % (0-10); NRBC Flagged by Analyzer 0 % (0-5); Neutrophil # 5.29 X10^3/uL (2.7-7.7); Neutrophil % 60.7 % (47-70); Platelet Count 365 K/mm3 (150-450); RBC Distribution Width CV 14.6 % (11.6-14.6); RBC Distribution Width SD 46.5 fl (35.1-43.9); Red Blood Count 4.47 M/mm3 (4.2-5.4); White Blood Count 8.7 K/mm3 (4.4-11.0)
[2023-01-18 10:31] LABS: ALB/GLOB Ratio 1.1 RATIO (0.9-2.4); AST(SGOT) 28 U/L (15-37); Alanine Aminotransfer ALT/SGPT 33 U/L (13-56); Albumin, Serum 3.6 g/dL (3.2-5.0); Alkaline Phosphatase 65 U/L (45-117); Anion Gap 6 (5-15); BUN 25 mg/dL (7-18); BUN/Creat Ratio 23.6 RATIO (10-20); Chloride 105 mmol/L (98-107); Creatinine, Serum 1.06 mg/dL (0.55-1.02); EST Glomerular Filtration Rate 55 mL/min (>60); Est Glom Filt Rate - Afr Amer 67 mL/min (>60); Globulin 3.4 g/dL (2.2-4.2); Glucose 100 mg/dL (74-106); Potassium 3.7 mmol/L (3.5-5.1); Sodium Level 140 mmol/L (136-145)
== END | disposition home or self-care (01) ==
LOC: MTLAB 08:28
PROVIDERS: PCP Family Medicine; Referring Provider Internal Medicine Rheumatology; Visit Provider Internal Medicine Rheumatology
DX: M06.00 Rheumatoid arthritis without rheumatoid factor, unspecified site (principal); Z79.899 Other long term (current) drug therapy
CPT/HCPCS: 36415; 80053; 85025

== ENCOUNTER → 2023-02-04 | Outpatient (CLI) | payer MEDICARE, BC, SELFPAY ==
--- NOTE | 2023-02-04 09:38 | RAD_ITS ---
EXAM: XR RIGHT WRIST COMPLETE, 3 OR MORE VIEWS CLINICAL INDICATION: injury TECHNIQUE: Frontal, lateral and oblique views of the right wrist. COMPARISON: No relevant prior studies available. FINDINGS: BONES/JOINTS: Unremarkable. No acute fracture. No subluxation. Normal alignment. Preservation of the joint space. No sclerotic or destructive changes observed. SOFT TISSUES: Unremarkable. No soft tissue swelling or gas. No radiopaque foreign body. RAD/Wrist min 3 Views IMPRESSION: Negative right wrist x-rays. Electronically Signed: Norm Laguna MD at 0:12 EDT ,
== END | disposition home or self-care (01) ==
LOC: MTRAD 09:38
PROVIDERS: PCP Family Medicine; Referring Provider Family Medicine; Visit Provider Family Medicine
DX: M25.531 Pain in right wrist (principal)
CPT/HCPCS: 73110

== ENCOUNTER → 2023-03-15 | Outpatient (CLI) | payer MEDICARE, BC, SELFPAY ==
[2023-03-15 09:59] LABS: Absolute Lymphocyte Count 1.97 X10^3/uL (0.83-4.51); Absolute Neutrophil Count 4.7 X10^3/uL (2.0-7.7); Basophil# 0.07 X10^3/uL; Basophil% 0.9 % (0-1); Eosinophil# 0.33 X10^3/uL; Eosinophils% 4.2 % (0-5); Hematocrit 39.3 % (37-47); Hemoglobin 12.2 g/dL (12.0-15.0); Lymphocyte # 1.97 X10^3/ul (0.83-4.51); Lymphocyte % 24.8 % (19-41); Mean Corpuscular Hgb 27.9 pg (27.0-32.0); Mean Corpuscular Volume 89.9 fL (81-99); Mean Platelet Vol. 9.4 fl (6.2-12.0); Monocyte# 0.84 X10^3/uL; Monocyte% 10.6 % (0-10); NRBC Flagged by Analyzer 0 % (0-5); Neutrophil % 59.2 % (47-70); Platelet Count 338 K/mm3 (150-450); RBC Distribution Width SD 59.3 fl (35.1-43.9); Red Blood Count 4.37 M/mm3 (4.2-5.4); White Blood Count 7.9 K/mm3 (4.4-11.0)
[2023-03-15 10:36] LABS: ALB/GLOB Ratio 1.2 RATIO (0.9-2.4); AST(SGOT) 23 U/L (15-37); Alanine Aminotransfer ALT/SGPT 32 U/L (13-56); Albumin, Serum 3.6 g/dL (3.2-5.0); Alkaline Phosphatase 68 U/L (45-117); Anion Gap 6 (5-15); BUN 17 mg/dL (7-18); BUN/Creat Ratio 19.2 RATIO (10-20); Chloride 109 mmol/L (98-107); Cholesterol 248 mg/dL (200); Creatinine, Serum 0.89 mg/dL (0.55-1.02); EST Glomerular Filtration Rate 68 mL/min (>60); Est Glom Filt Rate - Afr Amer 82 mL/min (>60); Globulin 3.1 g/dL (2.2-4.2); Glucose 103 mg/dL (74-106); High Density Lipoprotein 89 mg/dL; Potassium 3.9 mmol/L (3.5-5.1); Protein, Total 6.7 g/dL (6.4-8.2); Sodium Level 141 mmol/L (136-145); Triglycerides 68 mg/dL; Very Low Density Lipoprotein 14 mg/dL (5-40)
== END | disposition home or self-care (01) ==
PROVIDERS: PCP Family Medicine; Referring Provider Internal Medicine Rheumatology; Visit Provider Internal Medicine Rheumatology
DX: I10 Essential (primary) hypertension (principal)
CPT/HCPCS: 36415; 80053; 80061; 85025